=== PATIENT | female | born 1955 | race Caucasian/White ===

== ENCOUNTER 2020-01-24 07:40 | Outpatient (CLI) | payer MEDICARE, SELFPAY ==
--- NOTE | ~2020-01-24 | DEXA_ITS ---
Bone Density Report Name: Lisa Reed Age: 64 Sex: Female Ethnicity: White Date of : 1955 Indication: postmenopausal; Referring Provider: ChavaAlicia Study: Bone densitometry was performed. Exam Date: January 24, 2020 Accession number: [id number] Bone Density: Region BMD T-score Z-score Classification AP Spine (L1-L4) 0.978 -0.6 1.1 Normal Femoral Neck (Right) 0.807 -0.4 1.1 Normal Total Hip (Right) 0.919 -0.2 1.0 Normal World Health Organization criteria for BMD impression classify patients as: Normal (T-score at or above -1.0), Osteopenia (T-score between -1.0 and -2.5), or Osteoporosis (T-score at or below -2.5). 10-year Fracture Risk: FRAX not reported because: All T-scores for Spine Total, Hip Total, Femoral Neck at or above -1.0 Clinical Information Provided by Patient: Has used the following medications: Vitamin D Patient maximum height was 67 Menopause Age: 36 Does not regularly consume dairy products Drinks caffeinated beverages Onset of menses at age 13 Number of children 2 Impression: The patient has normal bone mass. Discussion: BONE DENSITY IS ABOVE THE MINIMUM DESIRABLE LEVEL AT ALL SKELETAL SITES TESTED. This patient?s bone mineral density is above the minimum desirable level (T-score -1.0 or better) at all sites measured. The patient should follow a healthful lifestyle (good nutrition with adequate calcium and vitamin D, and appropriate weight-bearing exercise). Follow-Up: Consider repeating this study in 5 years or sooner if there is some new clinical indication. Reported by: SENG on 01/24/2020 8:22:00 AM. Reviewed, dictated and finalized at location Juan NORIEGA
--- NOTE | ~2020-01-24 | MM_ITS ---
EXAMINATION: MM screening timothy BI w [facility] HISTORY: Screening mammogram TECHNIQUE: Craniocaudal and mediolateral oblique 3-D tomosynthesis images were obtained and synthetic 2-D images were generated. CAD analysis was submitted and interpreted. COMPARISON: No prior mammogram is available for comparison at this institution. BREAST PARENCHYMAL COMPOSITION: There are scattered areas of fibroglandular density. FINDINGS: There is no evidence of suspicious mass, calcification, or architectural distortion to sugg est malignancy in either breast. There has been no suspicious interval change. IMPRESSION: 1. No mammographic evidence of malignancy. 2. Recommend routine screening mammography in one year. BI-RADS Category 1: Negative Reviewed, dictated and finalized at location A. ER HAND
== END 2020-01-24 07:41 | disposition home or self-care (01) ==
PROVIDERS: PCP Internal Medicine; Visit Provider Internal Medicine
DX: Z12.31 Encounter for screening mammogram for malignant neoplasm of breast (principal); Z78.0 Asymptomatic menopausal state
CPT/HCPCS: 77063; 77067; 77080

== ENCOUNTER 2020-05-10 15:00 | Outpatient (RCR) | payer MEDICARE, SELFPAY ==
[2020-02-10 09:27] VITALS: BMI 39.0
[2020-04-11 09:22] VITALS: BMI 39.0
[2020-04-11 09:33] VITALS: BMI 39.0
== END 2020-05-10 23:59 | disposition home or self-care (01) ==
LOC: ANHDMC 15:00
PROVIDERS: PCP Internal Medicine; Visit Provider Internal Medicine
DX: E11.65 Type 2 diabetes mellitus with hyperglycemia (principal); E66.01 Morbid (severe) obesity due to excess calories; Z71.3 Dietary counseling and surveillance; Z71.89 Other specified counseling
CPT/HCPCS: 97802; 97803; G0108

== ENCOUNTER 2020-07-07 13:32 | Outpatient (CLI) | payer MEDICARE, SELFPAY ==
--- NOTE | 2020-07-12 11:25 | SLEEP_ITS ---
Home Sleep Test DATE OF STUDY: 07/07/2020 ORDERING PHYSICIAN: Dr. Alicia Larsen. REASON FOR THIS STUDY: Obstructive sleep apnea syndrome. HISTORY: This patient is a 64-year-old female, 5 feet 7 inches tall, weighing 255 pounds with a body mass index of 39.9. She has complaints of restless sleep, gasping for air at night, and constantly snoring frequently loud enough that others complain about it. She had a sleep study at [facility] and was started on CPAP, but her partner states that she is still very restless. She does have a family history with her son using CPAP. She rarely awakens from sleep feeling short of breath. She occasionally awakens at night with coughing. She frequently has trouble sleeping with a cold. She occasionally wakes up gasping for breath at night. She frequently has breathing problems at night witnessed by others and frequently sweats excessively at night. She occasionally notices her heart pounding or beating irregularly at night. She rarely falls asleep during the day, rarely involuntarily, never while driving. She rarely has loss of muscle tone with strong emotion. She rarely has daytime difficulties due to excessive sleepiness. She rarely feels paralyzed on waking or falling asleep. She occasionally has vivid dreamlike scenes upon awakening or falling asleep. She is never afraid to go to sleep, never has nightmares. She frequently remembers her dreams, occasionally has racing thoughts. She rarely feels sad or depressed. She occasionally has anxiety. She occasionally has muscular tension. She rarely notices parts of her body jerking at night and she frequently kicks at night. She rarely has crawly achy feelings in the legs at night, frequently has leg pain at night. She does not have morning jaw pain. She occasionally grinds her teeth at night. She rarely is bothered by pain during the day and rarely is awakened by pain during the night. She occasionally wakes up feeling stiff in the morning with sore achy muscles and pain in the neck and spine. She has concentration difficulties, bowel disturbances, and palpitations. Normal bedtime is 10 p.m., falling asleep within 45 minutes, waking 2 to 3 times at night for 15 minutes, during that time will use the bathroom or change body positions. She wakes up around 3 in the morning. She denies taking naps. Most of the time, she is not refreshed in the morning. MEDICAL COMORBIDITIES: 1. Hypertension. 2. Diabetes. 3. Neuropathy. 4. Obstructive sleep apnea syndrome, previously on CPAP. 5. Psoriasis. MEDICATIONS: 1. Lisinopril 40 mg a day. 2. Chlorthalidone 20 mg a day. 3. Amlodipine 10 mg a day. 4. Eliquis 5 mg b.i.d. 5. Metoprolol 25 mg twice a day. 6. Metformin ER 250 mg twice a day. HABITS: Smoked tobacco years ago. Caffeine, 1 per day. Alcohol, 3 per month. DESCRIPTION OF THE STUDY: On the Thornton Sleepiness Scale, her score is 8. This was conducted as an unattended type 3 portable home sleep test with 4 channel monitoring including respiratory effort channel, snoring channel, oxygen saturation channel, and heart rate channel. The study was scored using [facility] guidelines. Duration of the study is 8 hours 4 minutes. The apnea-hypopnea index is 22, elevated. The oxygen desaturation index is 21.5. The lowest desaturation is 78%. She had 28 apneas. The majority of these apneas, 68% or 19 apneas were central, 25% of the apneas or 7 were obstructive, 2 apneas were mixed, 7% of the total. She had 151 hypopneas. There were 873 snoring events and 173 desaturations with 54 minutes or 11% of the study spent below 88%. Heart rate ranged from 40 to 87, normal heart rate range. IMPRESSION: 1. This home sleep test shows evidence of at least moderate obs
== END 2020-07-07 13:33 | disposition home or self-care (01) ==
LOC: ANHCSM 13:33
PROVIDERS: PCP Internal Medicine; Visit Provider Internal Medicine
DX: G47.33 Obstructive sleep apnea (adult) (pediatric) (principal)
CPT/HCPCS: 95806

== ENCOUNTER 2020-09-19 09:15 | Outpatient (RCR) | payer MEDICARE, SELFPAY ==
[2020-08-08 14:02] VITALS: BMI 38.7
[2020-08-08 14:03] VITALS: BMI 38.7
== END 2020-09-19 12:09 | disposition home or self-care (01) ==
LOC: ANHDMC 09:15
PROVIDERS: PCP Internal Medicine; Visit Provider Internal Medicine
DX: E11.65 Type 2 diabetes mellitus with hyperglycemia (principal); E66.01 Morbid (severe) obesity due to excess calories; Z71.3 Dietary counseling and surveillance
CPT/HCPCS: 97803

== ENCOUNTER 2021-04-02 09:19 | Outpatient (CLI) | payer MEDICARE, SELFPAY ==
--- NOTE | ~2021-04-02 | MM_ITS ---
EXAMINATION: MM screening timothy BI w val[facility] HISTORY: Screening TECHNIQUE: Craniocaudal and mediolateral oblique 3-D tomosynthesis images were obtained and synthetic 2-D images were generated. CAD analysis was submitted and interpreted. COMPARISON: 01/24/2020 BREAST PARENCHYMAL COMPOSITION: There are scattered areas of fibroglandular density. FINDINGS: There is no evidence of suspicious mass, calcification, or architectural distortion to sugg est malignancy in either breast. There has been no suspicious interval change. IMPRESSION: 1. No mammographic evidence of malignancy. 2. Recommend routine screening mammography in one year. BI-RADS Category 1: Negative Reviewed, dictated and finalized at location A.
== END 2021-04-02 09:20 | disposition home or self-care (01) ==
LOC: ANHIMG 09:23
PROVIDERS: PCP Internal Medicine; Visit Provider Internal Medicine
DX: Z12.31 Encounter for screening mammogram for malignant neoplasm of breast (principal)
CPT/HCPCS: 77063; 77067

== ENCOUNTER 2022-05-10 12:11 | Outpatient (CLI) | payer MEDICARE, SELFPAY ==
--- NOTE | ~2022-05-10 | MMUS_ITS ---
EXAMINATION: MM diagnostic timothy BI w [facility], US breast RT limited HISTORY: Palpable lump in the upper outer quadrant of the right breast TECHNIQUE: Craniocaudal, mediolateral, and mediolateral oblique 3-D tomosynthesis images of the matthew ts were performed and synthetic 2-D images were generated. CAD analysis was submitted and interpreted . High resolution limited right breast ultrasound was performed. COMPARISON: 04/02/2021, 01/24/2020 BREAST PARENCHYMAL COMPOSITION: There are scattered areas of fibroglandular density. FINDINGS: MAMMOGRAPHIC FINDINGS: There is no suspicious mass, calcification, or architectural distortion in either breast to suggest malignancy. There has been no suspicious interval change. No mammographic correlate is identified for the reported palpable abnormality in the upper outer quadrant of the right breast. ULTRASOUND: There is no evidence of focal abnormal solid or cystic mass in the vicinity of the reported palpable abnormality of concern in the right breast. IMPRESSION: 1. No specific mammographic or sonographic correlate is identified for the reported palpable abnormal ity of concern. Further evaluation at this time should be based on clinical assessment. Continued fol low-up physical examination is recommended. 2. Recommend routine screening mammography in one year. BI-RADS Category 1: Negative Reviewed, dictated and finalized at location A. IMPRESSION: 1. No specific mammographic or sonographic correlate is identified for the repo rted palpable abnormality of concern. Further evaluation at this time should be based on clinical assessment. Continued follow-up physical examination is mauri mmended. 2. Recommend routine screening mammography in one year. BI-RADS Category 1: Negative
== END 2022-05-10 12:12 | disposition home or self-care (01) ==
LOC: ANHIMG 12:12
PROVIDERS: PCP Internal Medicine; Visit Provider Internal Medicine
DX: R92.8 Other abnormal and inconclusive findings on diagnostic imaging of breast (principal); N63.10 Unspecified lump in the right breast, unspecified quadrant
CPT/HCPCS: 76642; 77062; 77066; G0279

== ENCOUNTER → 2022-10-10 12:15 | Outpatient (CLI) | payer MEDICARE, SELFPAY ==
--- NOTE | ~2022-10-10 | US_ITS ---
EXAMINATION: US carotid duplex BI DATE: 10/10/2022 12:48 INDICATION: Carotid bruit TECHNIQUE: Grayscale, color Doppler, and pulsed Doppler images of the cervical carotid arteries were obtained. The degree of vessel stenosis is placed in one of the following categories: normal, <50%, 5 0-69%, >=70% but less than near-occlusion, near-occlusion, or total occlusion. Note that percent sten osis relative to normal distal artery lumen diameter is indirectly measured from velocity measurement s as described by Issa, et al. Radiology 2003; 229:340-346. COMPARISON: None. FINDINGS: RIGHT: The right common carotid artery (CCA) peak systolic velocity (PSV) is 88 cm/s. The right internal car otid artery (ICA) PSV is 91 cm/s. The right ICA end-diastolic velocity (EDV) is 23 cm/s. The right IC A/CCA PSV ratio is 1.0. Grayscale and color Doppler images yield an estimate of <50% diameter reducti on from plaque in the ICA. The external carotid artery (ECA) PSV is 108 cm/s. There is antegrade flow in the right vertebral artery. LEFT: The left CCA PSV is 74 cm/s. The left ICA PSV is 630 cm/s. The left ICA EDV is 208 cm/s. The left ICA /CCA PSV ratio is 8.1. Grayscale and color Doppler images yield an estimate of >=70% (but less than n ear occlusion) diameter reduction from plaque in the ICA. The ECA PSV is 134 cm/s. There is antegrade flow in the left vertebral artery. IMPRESSION: 1. <50% stenosis in the right internal carotid artery. 2. >=70% (but less than near occlusion) stenosis in the left internal carotid artery. Reviewed, dictated and finalized at location A. OR GRAIN FARMWORKER IMPRESSION: 1. <50% stenosis in the right internal carotid artery. 2. >=70% (but less than near occlusion) stenosis in the left internal carotid a juan f.
== END ==
PROVIDERS: PCP Internal Medicine; Visit Provider Internal Medicine
DX: R09.89 Other specified symptoms and signs involving the circulatory and respiratory systems (principal); I65.23 Occlusion and stenosis of bilateral carotid arteries
CPT/HCPCS: 93880

== ENCOUNTER 2023-02-07 04:47 | Emergency (ER) | payer MEDICARE, SELFPAY ==
--- NOTE | ~2023-02-07 | CT_ITS ---
CT ANGIOGRAM NECK AND HEAD History: Swelling at carotid endarterectomy site. Technique: Axial noncontrast imaging of the brain was performed. Serial spiral axial images through t he head and neck were vein obtained during arterial phase IV injection of 100 cc of Omnipaque 350. 3- D postprocessing and MIP images were then reconstructed on the remote workstation. Dose reduction luh hnique was used on this scan by utilizing automated exposure control and iterative reconstruction luh hnique. The dose-length product (DLP) was 1937.05 mGy-cm. CTA neck findings: Bilateral vertebral arteries are patent. Common carotid, internal carotid, and ex ternal carotid arteries are patent. No stenosis, large vessel occlusion, or aneurysm. The proximal ri ght internal carotid artery demonstrates 0% stenosis relative to the normal distal artery lumen diame ter. The proximal left internal carotid artery demonstrates 0% stenosis relative to the normal distal artery lumen diameter. CTA head findings: Distal vertebral arteries, basilar artery, and posterior cerebral arteries are pat ent. Distal internal carotid arteries, middle cerebral arteries, and anterior cerebral arteries are p atent. No large vessel occlusion, stenosis, or aneurysm. No significant abnormality seen on noncontrast brain images. There is mild soft tissue edema with small amount of soft tissue gas in the left side of the neck, pr esumably related to recent carotid endarterectomy intervention in this region. No abscess or hematoma evident. Impression: No significant vascular abnormality identified. Soft tissue edema and small amount of soft tissue gas in the left neck, consistent with post endarter ectomy change. No abscess or hematoma evident. Correlate clinically for cellulitis. Reviewed, dictated and finalized at location . RN PRODUCT MARKETING MANAGER Impression: No significant vascular abnormality identified. Soft tissue edema and small amount of soft tissue gas in the left neck, consist ent with post endarterectomy change. No abscess or hematoma evident. Correlate clinically for cellulitis.
[2023-02-07 04:51] VITALS: BP 182/92; PULSE 64; RESP 20; TEMP 36.8; O2SAT 96
--- NOTE | 2023-02-07 05:10 | PC.NURSE ---
Pt states she had surgery on her left carotid artery on Friday and was discharged yesterday. She woke up this morning around 0330 and noticed swelling and a bump under the incision. She c/o pain when area is touched but is otherwise pain free. She denies SOB or difficulty swallowing. Her chest is more red than usual but not hot to touch. She denies any other complaints.
[2023-02-07] MEDS: ACETAMINOPHEN 500 MG TABLET 1000 MG PO (05:29)
[2023-02-07 05:37] LABS: Basophils Absolute Auto 0.1 K/mm3 (0.0-0.1); Basophils Percent Auto 0.8 % (0.2-1.2); Eosinophils Absolute Auto 0.4 K/mm3 (0-0.3); Eosinophils Percent Auto 4.8 % (0-4.4); Hematocrit 40.6 % (37.0-47.0); Hemoglobin 13.1 g/dL (12.0-15.0); Immature Granulocyte Absolute 0.03 K/mm3 (0.00-0.031); Immature Granulocyte Percent A 0.4 % (0-0.5); Lymphocytes Absolute Auto 2.09 K/mm3 (0.9-3.2); Lymphocytes Percent Auto 24.6 % (18.3-44.2); Mean Corpuscular HGB Conc 32.3 g/dl (32-36); Mean Corpuscular Hemoglobin 27.9 pg (26-34); Mean Corpuscular Volume 86.6 fl (80-100); Mean Platelet Volume 10.1 fl (7.4-10.4); Monocytes Absolute Auto 0.7 K/mm3 (0.1-0.6); Monocytes Percent Auto 8.7 % (2.6-8.5); Neutrophils Absolute Auto 5.1 K/mm3 (1.3-6.7); Neutrophils Percent Auto 60.7 % (45.5-73.1); Platelet Count Result 249 k/mm3 (150-375); Red Blood Count 4.69 M/mm3 (4.2-5.4); Red Cell Distribution Width 14.5 % (11.5-14.5); White Blood Count 8.5 K/mm3 (4.5-10.0)
[2023-02-07 05:45] VITALS: BP 149/57; PULSE 52; RESP 12; O2SAT 95
[2023-02-07 05:48] LABS: Anion Gap 7 mmol/L (8-16); Blood Urea Nitrogen 18 mg/dL (7-17); Carbon Dioxide 34 mmol/L (22-30); Chloride 97 mmol/L (98-107); Estimated CRCL calculation 74 ml/min; Estimated Glomerular Filt Rate > 60; Glucose 127 mg/dL (65-110); Potassium 3.2 mmol/L (3.4-5.0); Sodium 138 mmol/L (137-145)
--- NOTE | 2023-02-07 05:54 | ED.GENADULT ---
HPI - General Adult General Chief complaint: Unspecified <Amor Webster MD - Last Filed: 02/13/23 19:02> Stated complaint: post op swelling <Amor Webster MD - Last Filed: 02/13/23 19:02> Time Seen by Provider: 02/07/23 05:01 <Amor Webster MD - Last Filed: 02/13/23 19:02> History of Present Illness HPI narrative: is a 67-year-old female presenting ED on postoperative day 2 from a carotid endarterectomy performed at [facility] by Dr. Houston. patient was feeling well yesterday and then woke up this morning and noticed that she had increased swelling at this site with a lacy erythema around her neck and upper chest. The area is tender to touch but she is not in any pain at baseline. She denies fever chills nausea vomiting diarrhea. She does not feel like she has any swelling of her airway. She is tolerating her own secretions. <Amor Webster MD - Last Filed: 02/13/23 19:02> is a 67-year-old female presenting ED on postoperative day 2 from a carotid endarterectomy performed at [facility] by Dr. Houston. patient was feeling well yesterday and then woke up this morning and noticed that she had increased swelling at this site with a lacy erythema around her neck and upper chest. The area is tender to touch but she is not in any pain at baseline. She denies fever chills nausea vomiting diarrhea. She does not feel like she has any swelling of her airway. She is tolerating her own secretions. <Roddy Covington MD - Last Filed: 02/07/23 17:47> Related Data Allergies/adverse reactions: Allergies Allergy/AdvReac Type Severity Reaction Status Date / Time hydrocodone [From Vicodin] AdvReac Nausea and Verified 02/07/23 04:54 Vomiting <Amor Webster MD - Last Filed: 02/13/23 19:02> [facility] Past Medical History Medical History: Medical History (Updated 02/08/23 @ 00:00 by Mike Rowe) Afib Diabetes Hyperlipidemia Hypertension <Amor Webster MD - Last Filed: 02/13/23 19:02> Surgical History Surgical History: Surgical History (Updated 02/07/23 @ 05:56 by Amor Webster MD) History of carotid endarterectomy History of cholecystectomy History of hip replacement <Amor Webster MD - Last Filed: 02/13/23 19:02> Social History Social History: Social History (Updated 02/07/23 @ 05:56 by Amor Webster MD) Social History: patient denies alcohol use, uses a vape pen, denies drug use Spiritual care concerns: No <Amor Webster MD - Last Filed: 02/13/23 19:02> Exam Narrative: APPEARANCE: No apparent distress. Head: atraumatic. EYES: EOMI, NOSE: Atraumatic NECK: patient has a carotid endarterectomy incision that is covered with Steri-Strips. There is some swelling and tenderness on the superior portion of the incision. There is a lacy erythema over her neck and upper chest. It is not warm to touch. RESPIRATORY: No increased rate of breathing CARDIOVASCULAR: RRR, ABDOMINAL: Non-distended MUSCULOSKELETAl: No obvious deformities NEURO: Alert. Cranial nerves 2-12 grossly intact. Sensation light touch, motor function cerebellar function intact for 4 extremities. Gait exam was normal. SKIN:: Warm, dry. Normal color PSYCHIATRIC: Normal affect <Amor Webster MD - Last Filed: 02/13/23 19:02> Course Reevaluation(s) Reevaluation #1: Patient care was signed out to me by Dr. Webster with CTA pending. CTA showed no evidence of hematoma or abscess. Case was rediscussed with Dr. Houston. With no significant abscess or hematoma identified her surgeon was comfortable with the patient having follow-up on Friday at the clinic. CTA was concerning for possible cellulitis. Patient does have some erythema over the skin that she believes is secondary to removal of the large bandage that had recently been in place. Skin does not appear to be cellulitic. Patient was advised to continue to hold her anticoagulation until s
[2023-02-07 06:49] VITALS: BP 141/52; PULSE 60; RESP 12; O2SAT 95
[2023-02-07 08:22] VITALS: BP 154/56; PULSE 59; RESP 17; TEMP 36.6; O2SAT 98
== END 2023-02-07 08:24 | disposition home or self-care (01) ==
PROVIDERS: Emergency Provider Emergency Medicine; PCP Internal Medicine
DX: R22.1 Localized swelling, mass and lump, neck (principal); L76.82 Other postprocedural complications of skin and subcutaneous tissue; I48.91 Unspecified atrial fibrillation; E11.9 Type 2 diabetes mellitus without complications; E78.5 Hyperlipidemia, unspecified; I10 Essential (primary) hypertension
CPT/HCPCS: 36415; 70496; 70498; 80048; 85025; 99284; A9270; Q9967

== ENCOUNTER 2023-08-13 00:20 | Day surgery (SDC) | payer MEDICARE, SELFPAY ==
[2023-08-07 16:01] VITALS: BMI 36.9
[2023-08-13 08:36] VITALS: BP 157/70; PULSE 89; RESP 20; TEMP 36.3; O2SAT 98; BMI 35.2
[2023-08-13] MEDS: LACTATED RINGERS 1,000 ML 150 ML IV CONT (08:47)
[2023-08-13 08:49] LABS: Glucose Point of Care 171 mg/dl (65-105)
--- NOTE | 2023-08-13 09:05 | WPDANESEPPF ---
Anes - Initial Pre Proc Eval Procedure: Operation Date: 08/13/23 10:00 Proposed Procedures p Colonoscopy - Brown Watkins MD Date/Time: 08/13/23 09:05 Surgeon: Brown Watkins MD Pre Op Diagnosis: Hx of colon polyps Patient Data Age: 67 Gender: F Height: 1.7 m Weight: 102 kg Last Vital Signs Temp 36.3 C L 08/13/23 08:36 Pulse 89 08/13/23 08:36 Resp 20 08/13/23 08:36 BP 157/70 H 08/13/23 08:36 Pulse Ox 98 08/13/23 08:36 O2 Del Method Room Air 08/13/23 08:36 Allergies Allergy/AdvReac Type Severity Reaction Status Date / Time hydrocodone [From Vicodin] AdvReac Severe Nausea and Verified 08/13/23 08:33 Vomiting Home Medications Medication Instructions Recorded Confirmed Type amlodipine 10 mg tablet 10 mg PO DAILY 08/07/23 08/07/23 History apixaban 5 mg tablet (Eliquis) 5 mg PO BID 08/07/23 08/07/23 History ascorbic acid (vitamin C) 1,000 mg 1 g PO DAILY 08/07/23 08/07/23 History tablet aspirin 81 mg tablet 81 mg PO DAILY 08/07/23 08/07/23 History chlorthalidone 25 mg tablet 25 mg PO DAILY 08/07/23 08/07/23 History cholecalciferol (vitamin D3) 25 25 mcg PO DAILY 08/07/23 08/07/23 History mcg (1,000 unit) tablet (Vitamin D3) lisinopril 40 mg tablet 40 mg PO DAILY 08/07/23 08/07/23 History metformin 750 mg tablet,extended 750 mg PO DAILY 08/07/23 08/07/23 History release 24 hr metoprolol tartrate 25 mg tablet 25 mg PO BID 08/07/23 08/07/23 History suxkbycc-xid-iidl-FA-Ca carb-vit K 1 tablet PO DAILY 08/07/23 08/07/23 History 18 mg iron-400 mcg-500 mg tablet rosuvastatin 40 mg tablet 40 mg PO HS 08/07/23 08/07/23 History Laboratory Tests 08/13/23 08:45 POC Capillary Glucose 171 H mg/dl (65-105) Patient hx anesthesia problems: none Family hx anesthesia problems: other (mother low bp hr) Results Review: All pre-operative results and documents have been reviewed as part of the pre-operative evaluation. [facility] Past Medical History Medical History Afib Diabetes Hyperlipidemia Hypertension Surgical History Surgical History History of carotid endarterectomy History of cholecystectomy History of hip replacement Social History Social History Social History: patient denies alcohol use, uses a vape pen, denies drug use Smoking packs per day: 0.75 Smoking cigarettes per day: 15.0 Years smoked: 45 Smoking pack-years: 33.75 Smoking status: Former smoker Tobacco type: cigarettes and e-cigarettes/vaping Additional smoking assessment comments: OCC. VAPES NOW Alcohol intake: current Substance use: never Substance use type: does not use Living arrangements: with family Spiritual care concerns: No Anes - Eval Final PreProcedure Day of Procedure 08/13/23 09:05 Patient weight: obese Heart: regular rate and rhythm Lungs: clear to auscultation Airway: Mallampati scale class II Neurological: alert and oriented Last oral intake: >/= 8 hours ASA classification: III Emergent: no Anesthetic plan: proceed Anesthesia type and monitoring: general GIVS and standard monitoring Results Review: All pre-operative results and documents have been reviewed as part of the pre-operative evaluation. Informed Consent: The patient's anesthetic plan and its attendant risks and benefits were discussed with the patient/family/POA. Questions were solicited and answers provided to the satisfaction of the patient/family/POA.
--- NOTE | 2023-08-13 09:12 | PM.HPGS ---
History of Present Illness History of Present Illness Consent: Risks, benefits, and alternatives have been discussed and questions answered. Patient agrees to proceed with procedure. Chief complaint: Hx of colon polyps Narrative: Lisa Reed is a 67 year old female with colon polyp 5 years ago Review of Systems Constitutional: Constitutional: Denies headache(s) and Denies weakness Eyes: Eyes: Denies blurry vision ENT: Reports Normal hearing present, Denies headache(s) and Denies neck pain Cardiovascular: Cardiovascular: Denies chest pain and Denies dyspnea Respiratory: Respiratory: Denies dyspnea Gastrointestinal: Gastrointestinal: Reports no additional gastrointestinal complaints Genitourinary: Genitourinary: Denies dysuria Musculoskeletal: Musculoskeletal: Denies neck pain Integumentary/Breasts: Skin/Breast: Denies dry skin Neurologic: Reports Normal hearing present, Denies headache(s) and Denies weakness Psychiatric: Psychiatric: Denies anxiety Endocrine: Endocrine: Denies change in body appearance Hematologic/Lymphatic: Hematologic/Lymphatic: Denies easy bleeding Allergic/Immunologic: Allergic/Immunologic: Denies urticaria PMFSH Past Medical History Medical History (Updated 08/13/23 @ 09:12 by Brown Watkins MD) Afib Colon polyp Diabetes Hyperlipidemia Hypertension Surgical History Surgical History History of carotid endarterectomy History of cholecystectomy History of hip replacement Social History Social History Social History: patient denies alcohol use, uses a vape pen, denies drug use Smoking packs per day: 0.75 Smoking cigarettes per day: 15.0 Years smoked: 45 Smoking pack-years: 33.75 Smoking status: Former smoker Tobacco type: cigarettes and e-cigarettes/vaping Additional smoking assessment comments: OCC. VAPES NOW Alcohol intake: current Substance use: never Substance use type: does not use Living arrangements: with family Spiritual care concerns: No Meds Home Medications and Allergies Home Medications Medication Instructions Recorded Confirmed Type amlodipine 10 mg tablet 10 mg PO DAILY 08/07/23 08/07/23 History apixaban 5 mg tablet (Eliquis) 5 mg PO BID 08/07/23 08/07/23 History ascorbic acid (vitamin C) 1,000 mg 1 g PO DAILY 08/07/23 08/07/23 History tablet aspirin 81 mg tablet 81 mg PO DAILY 08/07/23 08/07/23 History chlorthalidone 25 mg tablet 25 mg PO DAILY 08/07/23 08/07/23 History cholecalciferol (vitamin D3) 25 25 mcg PO DAILY 08/07/23 08/07/23 History mcg (1,000 unit) tablet (Vitamin D3) lisinopril 40 mg tablet 40 mg PO DAILY 08/07/23 08/07/23 History metformin 750 mg tablet,extended 750 mg PO DAILY 08/07/23 08/07/23 History release 24 hr metoprolol tartrate 25 mg tablet 25 mg PO BID 08/07/23 08/07/23 History pbxkrqiv-rxj-kfet-FA-Ca carb-vit K 1 tablet PO DAILY 08/07/23 08/07/23 History 18 mg iron-400 mcg-500 mg tablet rosuvastatin 40 mg tablet 40 mg PO HS 08/07/23 08/07/23 History Allergies Allergy/AdvReac Type Severity Reaction Status Date / Time hydrocodone [From Vicodin] AdvReac Severe Nausea and Verified 08/13/23 08:33 Vomiting Vital Signs Vital Signs - 24 hr 08/13/23 08:36 Temperature 97.4 F L Pulse Rate 89 Respiratory Rate 20 Blood Pressure 157/70 H Pulse Oximetry 98 Oxygen Delivery Room Air Exam Const: General: comfortable and no acute distress HENMT: Face/Nose/Sinus: Normal nares present Eyes: General: appearance normal, both eyes and all related structures Neck: Neck: no JVD Resp: Auscultation: clear to auscultation bilaterally Cardio: Rate: regular rate Rhythm: regular rhythm GI: Inspection: non-distended GI Palp: Yes Soft to palpation Skin: General skin exam: normal color Neuro: General: gait normal Speech: normal speech E
[2023-08-13 09:35] VITALS: BP 118/57; PULSE 66; RESP 20; O2SAT 98
[2023-08-13 09:45] VITALS: BP 120/60; PULSE 68; RESP 18; O2SAT 100
[2023-08-13 09:55] VITALS: BP 129/60; PULSE 64; RESP 18; O2SAT 100
== END 2023-08-13 10:01 | disposition home or self-care (01) ==
PROVIDERS: PCP Internal Medicine; Visit Provider Internal Medicine Gastroenterology
PROC: 0DJD8ZZ Inspection of Lower Intestinal Tract, Via Natural or Artificial Opening Endoscopic (ICD-10-PCS; CPT 45378; principal; 2023-08-13 10:00)
DX: Z12.11 Encounter for screening for malignant neoplasm of colon (principal); D12.3 Benign neoplasm of transverse colon; K57.30 Diverticulosis of large intestine without perforation or abscess without bleeding; I48.91 Unspecified atrial fibrillation; I10 Essential (primary) hypertension; E11.9 Type 2 diabetes mellitus without complications; E78.5 Hyperlipidemia, unspecified; F17.290 Nicotine dependence, other tobacco product, uncomplicated; E66.9 Obesity, unspecified; Z68.35 Body mass index [BMI] 35.0-35.9, adult; Z79.01 Long term (current) use of anticoagulants; Z79.82 Long term (current) use of aspirin; Z79.84 Long term (current) use of oral hypoglycemic drugs
CPT/HCPCS: 45385; 82948; 88305; J2704; J7120

== ENCOUNTER 2024-06-04 09:00 | Outpatient (CLI) | payer MEDICARE, SELFPAY ==
--- NOTE | ~2024-06-04 | MM_ITS ---
EXAMINATION: MM screening [facility] BI w [place] HISTORY: Screening mammogram TECHNIQUE: Craniocaudal and mediolateral oblique 3-D tomosynthesis images were obtained and synthetic 2-D images were generated. CAD analysis was submitted and interpreted. COMPARISON: 05/10/2022, 04/02/2021, 01/24/2020 BREAST PARENCHYMAL COMPOSITION:Not Dense. There are scattered areas of fibroglandular density. FINDINGS: No suspicious mass, calcification, or architectural distortion are identified in either ni ast to suggest malignancy. There has been no suspicious interval change. IMPRESSION: No mammographic evidence of malignancy. Recommend routine screening mammography in one year. BI-RADS Category 1: Negative Reviewed, dictated and finalized at location .
== END 2024-06-04 09:01 | disposition home or self-care (01) ==
LOC: ANHIMG 09:01
PROVIDERS: PCP Internal Medicine; Visit Provider Internal Medicine
DX: Z12.31 Encounter for screening mammogram for malignant neoplasm of breast (principal)
CPT/HCPCS: 77063; 77067

== ENCOUNTER 2024-11-11 08:56 | Outpatient (CLI) | payer MEDICARE, SELFPAY ==
--- NOTE | ~2024-11-11 | US_ITS ---
EXAMINATION: US art doppler w press LE BI DATE: 11/11/2024 10:40 INDICATION: Claudication TECHNIQUE: Segmental pressures and plethysmographic and Doppler waveforms of the brachial and lower e xtremity arteries were obtained. COMPARISON: None. FINDINGS: Right and left brachial artery pressures of 112 mm Hg and 131 mm Hg, respectively, are concordant (no rmal difference <= 30 mmHg). The right and left high-thigh pressure indices are unable to be obtained due to inability to occlude the vessels on either the left or right (normal > 1.2). The right ankle-brachial index (FELISA) is 1.07 (normal >= 0.9-1). The right great toe-brachial index (T BI) is 0.39 (normal >= 0.6-0.8). The right lower extremity segmental pressure gradients are increased between the right dorsalis pedis artery and the right poguo-vmu-wdst popliteal artery and right post erior tibial artery (normal gradients <= 20-30 mmHg between adjacent levels on the same leg or the sa me levels on the two legs). Arterial waveforms are biphasic at the right common femoral and superfici al femoral arteries and biphasic at the right popliteal, posterior tibial and dorsalis pedis arteries with brisk systolic upstrokes throughout. The left FELISA is 0.94. The left TBI is 0.46. The left lower extremity segmental pressure gradients are increased between the left above and axdyn-cpx-hlxp popliteal arteries. Arterial waveforms are bipha sic at the left common femoral and superficial femoral arteries and biphasic at the left popliteal, p osterior tibial and dorsalis pedis arteries with brisk systolic upstrokes throughout. IMPRESSION: 1. Arterial occlusive disease to bilateral lower limbs with mildly decreased left TBI and mild to mod erately decreased right TBI. Reviewed, dictated and finalized at location A. ING PIN ADJUSTER IMPRESSION: 1. Arterial occlusive disease to bilateral lower limbs with mildly decreased le ft TBI and mild to moderately decreased right TBI.
== END 2024-11-11 08:57 | disposition home or self-care (01) ==
LOC: ANHIMG 08:57
PROVIDERS: PCP Internal Medicine; Visit Provider Internal Medicine
DX: I77.1 Stricture of artery (principal); I87.8 Other specified disorders of veins
CPT/HCPCS: 93923

== ENCOUNTER 2025-05-19 11:27 | Outpatient (CLI) | payer MEDICARE, SELFPAY ==
--- OUTSIDE RECORDS SUMMARY | 2025-05-16 17:03 | XMS_ITS | Encounter Summary ---
Author Organization [facility] Address [address] [place] [address] Phone Care Team Providers Care Exchange Trouble Shooter Name Role Phone Cherise Joseph DO Primary Care Provider [phone] Alicia Larsen MD Unavailable [phone] Encounter Details Date Type Department Care Team (Late st Contact Info) Description 05/16/2025 Documentation [facility] Surgery [address] [facility] Medical Office Building [address] [address] Nanette Mon RMA Social History Tobacco Use Types Packs/Day Years Used Date Smoking Tobacco: Former Cigarettes 1 51 1 970 - 2020 Passive Smoke Exposure: Past Smokeless Tobacco: Never Alcohol Use Standard Drinks/Week Comments Yes 0 (1 standard drink = 0.6 oz pur e alcohol) AUDIT-C Answer Date Recorded Q1: How often do you have a drink containing alcohol? Never 01/27/2023 Q2: How many drinks containi ng alcohol do you have on a typical day when you are drinking? Patient does not drink Q3: How often do you have si x or more drinks on one occasion? 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
--- OUTSIDE RECORDS SUMMARY | 2025-05-16 17:03 | XMS_ITS | Clinical Summary ---
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 Gender Identity Not on file Sexual Orientation Not on file Last Filed Vital Signs Vital Sign Reading Time Taken Comments Blood Pressure 158/78 05/03/2016 10:44 AM CDT Pulse 77 05/03/2016 10:44 AM CDT Temperature - - Respiratory Rate - - Oxygen Saturation - - Inhaled Oxygen Concentration - - Weight 111.1 kg (245 lb) 05/03/2016 10:44 AM CDT Height 170.2 cm (5' 7) 05/03/2016 10:44 AM CDT Body Mass Index 38.37 05/03/2016 10:44 AM CDT Plan of Treatment Health Maintenance Due Date Last Done Comments Colorectal Cancer Screening Colonoscopy (10 Years) 1955 Hepatitis C 1972 DTaP, Tdap and Td Vaccines ( 1 - Tdap) 1973 Mammogram Screening 1994 Pneumococcal Vaccine: 50+ Ye ars (1 of 1 - PCV) 2004 Zoster Vaccines (1 of 2) 2004 Dexa Scan (General) 2019 COVID-19 Vaccine ( - 2023-2 5 season) 2024 RSV Immunization or 60+ Years (1 - 1-dose 75+ series) 2029 Meningococcal B Vaccine Aged Out No l onger eligible based on patient's age to complete this topic Meningococcal Vaccine Aged Out No cornel lisa eligible based on patient's age to complete this topic RSV Immunizations Under 20 Months Aged Out No longer eligible based on patient's age to complete this topic Insurance [address] [address] Care Teams Wool Hat Forming Machine Tender Relationship Specialty Start Date End Date Lenard Fan MD [address] [place] [id number] PCP - General FAMILY PRACTICE 08/25/19
--- OUTSIDE RECORDS SUMMARY | 2025-05-16 17:03 | XMS_ITS | Encounter Summary ---
Author Organization [facility] Address [address] [place] [address] Phone Care Team Providers Care Office Helper Name Role Phone Cherise Joseph Primary Care Provider [phone] Alicia Larsen MD Unavailable [phone] Reason for Visit * Consultation (Routine) - Authorized Specialty Diagnoses / Procedures Referred By Contnikia t Referred To Contact Vascular Surgery Diagnoses Left carotid stenosis Dhruv Shahid MD [address] [facility] [address] [place] [address] Phone: tel: [place]: [place] [address] [place] [address] Phone: tel: fax: Referral ID Status Reason Start Date Expiration Date Visits Requested Visits Authorized [id number] Authorized Specialty Services Required 04/28/2025 05/28/2026 12 12 Encounter Details Date Type Department Care Team (Late st Contact Info) Description 05/16/2025 3:15 PM CDT Office Visit [facility] Surgery [address] 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 Gender Identity Not on file Sexual Orientation Not on file documented as of this encounter Last Filed Vital Signs Vital Sign Reading Time Taken Comments Blood Pressure 131/70 05/16/2025 2:38 PM CDT Pulse 57 05/16/2025 2:38 PM CDT Temperature 36.7 C (98 F) 05/16/2025 2:38 PM CDT Respiratory Rate 18 05/16/2025 2:38 PM CDT Oxygen Saturation 98% 05/16/2025 2:38 PM CDT Inhaled Oxygen Concentration - - Weight 116.1 kg (256 lb) 05/16/2025 2:38 PM CDT Height 170.2 cm (5' 7.01) 05/16/2025 2:38 PM CD T Body Mass Index 40.09 05/16/2025 2:38 PM CDT documented in this encounter Patient Instructions * Patient Instructions* James Brooke MD - 05/16/2025 3:15 PM CDT Carotid duplex documented in this encounter Progress Notes * James Brooke MD - 05/16/2025 3:15 PM CDT Patient: Lisa Reed Date of : 1955 Date of Service: 05/16/2025 Return Office Visit Consultation at the request of Alicia Larsen MD for an opinion regarding carotid artery disease. I have personally taken a history, examined the patient and determined the assessment and plan as outlined below. CHIEF COMPLAINT: Carotid stenosis HISTORY OF PRESENT ILLNESS: Patient is a 69 y.o. female and has a history of hypertension, paroxysmal atrial fibrillation, type 2 diabetes mellitus, obesity, DJD with high grade asymptomatic Left carotid stenosis s/p L CEA 02/05/23. She denies any TIA, stroke or amaurosis fugax symptoms. She is on antiplatelet therapy and statins. Carotid duplex in summer 2022 showed less than 50% stenosis bilaterally. Repeat carotid duplex January 2024 shows less than 50% stenosis on right and greater than 70% stenosis on the left. She remains asymptomatic carotid stenosis and is currently on aspirin, Eliquis and statins. Carotidduplex shows less than 50% stenosis on right and over 70% stenosis on left. CT angiogram head and neck 11/23 shows normal right carotid artery and about 60% left ICA stenosis at best. It is very tortuous proximally with a hairpin bend within the internal carotid artery that is likely leading to increased velocities noted on carotid duplex. Repeat ultrasound duplex today shows right side is normal and left side velocities are improved compared to last visit. Peak systolic velocity is 305 and end-diastolic velocity is 63 cm/sec. Ratio is4.3. She remains asymptomatic and denies any symptoms of stroke, TIA or amaurosis fugax. Past Medical History: Diagnosis Date Atrial fibrillation (HCC) Diabetes mellitus (HCC) Hyperlipidemia Hypertension Sleep apnea Past Surgical History: Procedure Laterality Date CHOLECYSTECTOMY ECTOPIC TOTAL HIP ARTHROPLASTY Left UTERINE FIBROID SURGERY Family History Problem Relation Age of Onset Hypertension Mother Cancer Mother Heart failure Father Hypertension Sister No Known Problems Brother Cancer Brother Hypertension Brother Cancer Brother Other (heart valve replacement) Brother Heart attack Brother Aneurysm Brother Cancer Brother Social History Tobacco Use Smoking status: Former Current packs/day: 0.00 Average packs/day: 1 pack/day for 51.0 years (51.0 ttl pk-yrs) Types: Cigarettes Start date: 1969 Quit date: 2020 Years since quittin.4 Passive exposure: Past Smokeless tobacco: Never Substance and Sexual Activity Drug use: Yes Types: Alcohol Comment: rare Sexual activity: Defer Alcohol Use: Not At Risk (01/27/2023) AUDIT-C Frequency of Alcohol Consumption: Never Average Number of Drinks: Patient does not drink Frequency of Binge Drinking: Never Allergies as of 05/16/2025 - Reviewed 05/16/2025 Allergen Reaction Noted Hydrocodone Nausea & Vomiting 11/28/2022 Hydrocodone-acetaminophen Nausea & Vomiting and Unknown 02/16/2020 Current Outpatient Medications: acetaminophen (TYLENOL) 500 mg tablet, Take 2 tablets (1,000 mg total) by mouth every 6 (six) hoursas needed for pain, Disp: , Rfl: amLODIPine (NORVASC) 10 mg tablet, Take 1 tablet (10 mg total) by mouth every morning, Disp: , Rfl: ascorbic acid (VITAMIN C) 1,000 mg tablet, Take 1 tablet (1,000 mg total) by mouth nightly, Disp: ,Rfl: aspirin 81 mg enteric coated tablet, Take 1 tablet (81 mg total) by mouth daily, Disp: 30 tablet, Rfl: 11 calcipotriene (DOVONOX) 0.005 % cream, Apply 1 application topically 2 (two) times a day, Disp: , Rfl: carvediloL (COREG) 6.25 mg tablet, Take 1 tablet (6.25 mg total) by mouth 2 (two) times a day with meals, Disp: 60 tablet, Rfl: 11 cholecalciferol (VITAMIN D-3) 25 mcg (1,000 unit) tablet, Take 1 tablet (1,000 Units total) by mouth every morning, Disp: , Rfl: Eliquis 5 mg tablet, Take 1 tablet (5 mg total) by mouth 2 (two) times a day Please resume your home dose Eliquis on Friday02/10/2023., Disp: 30 tablet, Rfl: 3 lisinopriL (PRINIVIL,ZESTRIL) 40 mg tablet, Take 1 tablet (40 mg total) by mouth every morning, Disp: , Rfl: metFORMIN XR (GLUCOPHAGE XR) 750 mg 24 hr tablet, Take 1 tablet (750 mg total) by mouth 2 (two) times a day, Disp: , Rfl: multivitamin capsule, Take 1 capsule by mouth every morning, Disp: , Rfl: rosuvastatin (CRESTOR) 40 mg tablet, Take 1 tablet (40 mg total) by mouth nightly, Disp: 90 tablet,Rfl: 6 spironolactone (ALDACTONE) 25 mg tablet, Take 1 tablet (25 mg total) by mouth daily, Disp: 30 tablet, Rfl: 11 varenicline tartrate (CHANTIX) 1 mg tablet, Take 0.5 tablets (0.5 mg total) by mouth 2 (two) times a day for 7 days, THEN 1 tablet (1 mg total) 2 (two) times a day for 9 days. Take with full glass ofwater., Disp: 60 tablet, Rfl: 3 REVIEW OF SYSTEMS: The patient???s vascular health history form was reviewed and signed by me dated 05/16/2025 The form was scanned into Media. PHYSICAL EXAMINATION: VITAL SIGNS: Vitals BP 131/70 Pulse 57 Temp 36.7 ??C (98 ??F) Resp 18 Ht 170.2 cm (5' 7.01) Wt 116.1 kg (256 lb) SpO2 98% BMI 40.09 kg/m?? HENT: Normocephalic and atraumatic. Extraocular movements are intact. Moist mucus membranes. EYES: Pupils are equal and reactive to light bilaterally. NECK: Supple with no lymphadenopathy CHEST: Symmetric chest expansion with no accessory muscle usage HEART: Regular rate and rhythm. ABDOMEN: Soft, nontender, nondistended. VASCULAR: Palpable radial pulse, left neck incision is well healed from carotid endarterectomy. Cranial nerve exam is intact MUSCULOSKELETAL: Warm, well perfused NEURO: Grossly intact motor and sensory exam. SKIN: No visible rashes. No wounds noted. RADIOLOGY: I personally reviewed the report and images of: CTA HEAD/NECK Patient Active Problem List Diagnosis Morbid (severe) obesity due to excess calories (HCC) Other thrombophilia Stenosis of left carotid artery Atrial fibrillation (HCC) HTN (hypertension) Diabetes mellitus (HCC) Carotid artery calcification, left ASSESSMENT/PLAN: Lisa Reed is a 69 y.o. female patient with asymptomatic high-grade left carotid artery stenosis and mild right carotid stenosis s/p L CEA 02/05/23 - no TIA, stroke or amaurosis fugax - carotid duplex May 2023 showed less than 50% stenosis bilaterally. Repeat carotid duplex January 2024 shows findings concerning for high-grade left internal carotid artery stenosis - CT angiogram head and neck Carloz,24 shows normal right carotid artery and 60% left ICA stenosis which is very tortuous with a hairpin bend in the proximal left ICA. This area of tortuosity is likely resulting in significantly elevated velocities noted on ultrasound duplex - CN exam normal - on aspirin, Eliquis and statins - discussed signs and symptoms of TIA, stroke or amaurosis fugax for which she will go to the nearest ER right away - bedside ultrasound duplex of left carotid artery shows about 3.5 cm to the carotid bifurcation onthe left side from the base of the neck. - Repeat carotid duplex at this visit shows that the right side is normal and left side has moderate to severe stenosis with interval improvement in velocities. Peak systolic velocity of 305 cm/sec with 63 cm/sec end-diastolic velocity and ratio of 4.3 - discussed options in detail and will continue conservative management at this time. Follow-up in 6 months with carotid duplex. The area of proximal left ICA tortuosity is likely contributing to significantly increased velocities. If it is substantially increases, we may have to intervene. If the stenosis continues to get worse in the left ICA segment, we will consider TCAR but currently it justrequires conservative management alone with serial monitoring James Brooke MD documented in this encounter Plan of Treatment Not on file documented as of this encounter Visit Diagnoses Diagnosis Left carotid stenosis documented in this encounter Orders Outpatient Referral Count Last Ordered Date st Ordered Date AMB REFERRAL TO VASCULAR SURGERY 1 05/16/20 documented in this encounter Care Teams Office Helper Relationship Specialty Start Date End Date Cherise Joseph DO [address] [place] [address] [address] [place] [address] PCP - General Family Medicine 04/20/25 Alicia Larsen MD [address] [place] [address] [address] [place] [address] Referring Physician Internal Medicine 04/22/25 documented as of this encounter
--- OUTSIDE RECORDS SUMMARY | 2025-05-16 17:03 | XMS_ITS | Clinical Summary ---
Author Organization [facility] [address] Address [address] [place] [address] Care Team Providers Care Strand Galvanizer Name Role Phone Cherise Joseph DO Primary Care Provider [phone] Alicia Larsen MD Unavailable Allergies Active Allergy Reactions Criticality Noted Date Comments Hydrocodone Nausea & Vomiting Low 11/28/2022 Hydrocodone-Acetaminophen Nausea & Vomiting,Unknown Low 02/16/2020 Medications lisinopriL (PRINIVIL,ZESTR IL) 40 mg tabletIndicatio ns:hypertension Take 1 tablet (40 mg total) by mouth every morning 02/02/20 20 Active metFORMIN XR (GLUCOPHAGE XR) 750 mg 24 hr tabletIndicatio ns:type 2 diabetes mellitus Take 1 tablet (750 mg total) by mouth 2 (two) times a day 02/02/20 20 Active cholecalciferol (VITAMIN D-3) 25 mcg (1,000 unit) tabletIndicatio ns:Vitamin D Deficiency Take 1 tablet (1,000 Units total) by mouth every morning Active ascorbic acid (VITAMIN C) 1,000 mg tabletIndicatio ns:Vitamin C Deficiency Take 1 tablet (1,000 mg total) by mouth nightly Active multivitamin capsuleIndicati ons:Vitamin Deficiency Prevention Take 1 capsule by mouth every morning Active amLODIPine (NORVASC) 10 mg tabletIndicatio ns:hypertension Take 1 tablet (10 mg total) by mouth every morning 12/26/19 21 Active calcipotriene (DOVONOX) 0.005 % creamIndication s:Plaque Psoriasis Apply 1 application topically 2 (two) times a day 01/31/20 21 Active aspirin 81 mg enteric coated tablet Take 1 tablet (81 mg total) by mouth daily 30 tablet 11 10/16/20 22 Active acetaminophen (TYLENOL) 500 mg tabletIndicatio ns:Pain Take 2 tablets (1,000 mg total) by mouth every 6 (six) hours as needed for pain Active spironolactone (ALDACTONE) 25 mg tablet Take 1 tablet (25 mg total) by mouth daily 30 tablet 04/14/20 24 Active carvediloL (COREG) 6.25 mg tablet Take 1 tablet (6.25 mg total) by mouth 2 (two) times a day with meals 60 tablet 04/14/20 24 Active Eliquis 5 mg tabletIndicatio ns:atrial fibrillation Take 1 tablet (5 mg total) by mouth 2 (two) times a day Please resume your home dose Eliquis on Friday02/10/2023. 30 tablet 3 04/18/20 25 Active rosuvastatin (CRESTOR) 40 mg tablet Take 1 tablet (40 mg total) by mouth nightly 90 tablet 6 04/20/20 25 Active varenicline tartrate (CHANTIX) 1 mg tabletIndicatio ns:Smoking Cessation Take 0.5 tablets (0.5 mg total) by mouth 2 (two) times a day for 7 days, THEN 1 tablet (1 mg total) 2 (two) times a day for 9 days. Take with full glass of water. 60 tablet 3 04/20/20 25 Active Eliquis 5 mg tabletIndicatio ns:atrial fibrillation Take 1 tablet (5 mg total) by mouth 2 (two) times a day Please resume your home dose Eliquis on Friday02/10/2023. 30 tablet 02/07/20 23 2024 Discontinued(Ping turner) rosuvastatin (CRESTOR) 40 mg tablet TAKE 1 TABLET BY MOUTH AT NIGHT 100 tablet 2 06/30/20 23 2024 Discontinued Active Problems Problem Noted Date Diagnosed Date Atrial fibrillation 02/05/2023 Assessment & Plan (02/05/2023 6:00 AM CHEMISTRY TECHNICIAN): Known hx of p. A fib on Eliquis as outpatient. 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 - Continue aspirin and statin. - Hold Eliquis for now. D/w team timing of restart. - Telemetry with OU monitoring. - Continue home metoprolol of BP and HR allows following carotid endarterectomy. HTN (hypertension) 02/05/2023 Assessment & Plan (02/05/2023 6:01 AM CHEMISTRY TECHNICIAN): Home regimen: amlodipine 10mg daily, chlorthalidone 25mg daily, lisinopril 40mg daily, metoprolol 25mg BID. - Resume home regimen as able following OR. Start with metoprolol. Diabetes mellitus 02/05/2023 Assessment & Plan (02/05/2023 6:02 AM CHEMISTRY TECHNICIAN): On metformin as outpatient. - Hold metformin for now. Start SSI and monitor glucose checks. Plan to restart metformin at discharge. Carotid artery calcification, left 02/05/2023 Stenosis of left carotid artery 11/08/2022 Overview (11/08/2022): Added automatically from request for surgery [id number] Assessment & Plan (02/05/2023 5:59 AM CHEMISTRY TECHNICIAN): Found on carotid duplex following finding of carotid bruit. - OR 02/05/2023 for left carotid endarterectomy. - Continue aspirin and statin. - BP goals 100-150. - CLD. - OU status overnight. - DC arterial line and Mccray in AM. - Q2h NV checks. Morbid (severe) obesity due to excess calories 1 12/16/2021 Other thrombophilia 10/16/2022 Encounters Date Type Department Care Team Description 05/16/2025 3:15 PM CDT Office Visit [facility] [address] [place] [address] [address] [place] [phone] James Shaikh MD Left carotid stenosis 05/16/2025 2:30 PM CDT Ancillary Procedure [facility] [address] [place] [address] [address] [place] [phone] Left carotid stenosis 05/16/2025 Documentation [facility] [address] [facility] Medical Office Building [address], [place] [address] Nanette Mon RMA 04/20/2025 9:45 AM CDT Office Visit [facility] Medical [facility] Cardiology [address] [place] [phone] Dhruv Shahid MD Paroxysmal atrial fibrillation (HCC) (Primary Dx); Chronic anticoagulation; Hypertension associated with diabetes (HCC); S/P carotid endarterectomy; ELIZABETH on CPAP; Morbid obesity with BMI of 40.0-44.9, adult (HCC); Lipid screening; Engages in vaping; Tobacco abuse 04/20/2025 Telephone [facility] [address] [place] [phone] Dhruv Shahid MD 04/18/2025 Telephone [facility] Cardiology [address] [place] [phone] Dhruv Shahid MD from Last 3 Months Surgical History Surgery Date Site/Laterality Comments UTERINE FIBROID SURGERY CHOLECYSTECTOMY ECTOPIC TOTAL HIP ARTHROPLASTY Left Medical History Medical History Date Comments Atrial fibrillation (HCC) Hypertension Hyperlipidemia Sleep apnea Diabetes mellitus (HCC) Family History Medical History Relation Name Comments No Known Problems Brother 1 Cancer Brother 2 Hypertension Brother 2 Cancer Brother 3 heart valve replacement Brother 3 Aneurysm Brother 4 Cancer Brother 4 Heart attack Brother 4 Heart failure Father Cancer Mother Hypertension Mother Hypertension Sister Relation Name Status Comments Brother 1 Alive Brother 2 Alive Brother 3 Alive Brother 4 Alive Father (Age 96) Mother (Age 79) Sister Alive Social History Tobacco Use Types Packs/Day Years [...] on file Legal Sex Female 10:27 AM CHEMISTRY TECHNICIAN Gender Identity Not on file Sexual Orientation Not on file Obstetrics History Last Filed Vital Signs Vital Sign Reading [...] Mass Index 40.09 05/16/2025 2:38 PM CDT Plan of Treatment Health Maintenance Due Date Last Done Comments Albumin Creatinine Ratio, Urine 1955 Breast Cancer Screening-Mammogram 1955 Colon Cancer Screening-Colonoscopy 1955 Depression Screening 1955 Hepatitis C Screening 1955 Osteoporosis Screening-Bone Density Scan 1955 Dilated Eye Exam 1955 Foot Exam 1955 DTaP/Tdap/Td Vaccine (1 - Tdap) 1965 Hepatitis B Screening 1972 Pneumococcal vaccine 65+ (1 of 2 - PCV) 1973 Lung Cancer Screening 2004 Zoster Vaccine (1 of 2) 2004 Well Visit 65+ 2019 Hemoglobin A1C 05/29/2023 11/28/2022 Fall Risk Assessment 02/07/2024 02/06/2023 eGFR 04/30/2025 04/30/2024, 03/0 07/2023, 01/27/2023, Additional history exists Influenza Vaccine (Season Ended) 2025 09/27/2020, 04/06/2018, 01/29/2018, Additional history exists Lipid Panel 04/20/2026 04/20/2025, 03/31, 02/05/2023, Additional history exists Medical Devices Implanted Type Area Sexton Helper Device Identifier Shelf Expiration Date Model / Serial / Lot IntelliMat Vascu-Guard 8x.8cm Peripheral Patch Vascular Bovine Pericardium [id number] - [id number] - [id number] Implanted:Qty: 1 on 02/05/2023 by James Shaikh MD at [facility] Other - see comments Left: Carotid IntelliMat [id number] 02/06/2026 [id number] / 00 / [id number] Description:Bovine pericardi al patch Procedures Procedure Name Priority Date/Time Associated Diagnosis Comments US CAROTIDS DUPLEX BILATERAL Schedule Routine, Read Routine (OP Routine) 05/16/2025 2:48 PM CDT Left carotid stenosis POCT LIPID PANEL Routine 04/20/2025 9:49 AM CDT Lipid screening BASIC METABOLIC PANEL Routine 04/30/2024 Hypertension associated with diabetes (HCC) POCT HEMOGLOBIN A1C Routine 11/28/2022 1:39 PM CHEMISTRY TECHNICIAN from Last 3 Months or Most Recently Relevant to Health Maintenance Results * US Carotids Duplex Bilateral (05/16/2025 2:48 PM CDT) Anatomical Region Laterality Modality Vascular Bilateral Ultrasound 05/16/2025 2:22 PM CDT Narrative 05/16/2025 4:47 PM CDT [facility] - Department of Vascular Surgery, Vascular Laboratory [address] [place] [address] Carotid Duplex Ultrasound Report Patient Name: LISA REED : 1955 (69y 7m) Study Date: 05/16/2025 2:22:45 PM Gender: F Tech: Location: [facility] Ref Provider: JAMES SHAIKH Quality: Adequate Order Provider: JAMES SHAIKH PROCEDURES: Carotid Report: Carotid duplex examination of the extracranial arteries was performed using 2D, color and spectral Doppler. INDICATIONS: I65.22 Occlusion and stenosis of left carotid artery. MEASUREMENTS: Right Value Units Left Value Units RT Prox CCA PSV 104 cm/sec LT Prox CCA PSV 64 cm/sec RT Prox CCA EDV 19 cm/sec LT Prox CCA EDV 12 cm/sec RT Distal CCA PSV 78 cm/sec LT Distal CCA PSV 71 cm/sec RT Distal CCA EDV 17 cm/sec LT Distal CCA EDV 16 cm/sec RT Prox ICA PSV 76 cm/sec LT Prox ICA PSV 305 cm/sec RT Prox ICA EDV 22 cm/sec LT Prox ICA EDV 63 cm/sec RT Mid ICA PSV 118 cm/sec LT Mid ICA PSV 136 cm/sec RT Mid ICA EDV 31 cm/sec LT Mid ICA EDV 21 cm/sec RT Distal ICA PSV 108 cm/sec LT Distal ICA PSV 113 cm/sec RT Distal ICA EDV 28 cm/sec LT Distal ICA EDV 28 cm/sec RT ECA Prx PSV 101 cm/sec LT ECA Prx PSV 154 cm/sec RT ICA/CCA 1.51 ratio LT ICA/CCA 4.30 ratio RT VERT PSV 55 cm/sec LT VERT PSV 81 cm/sec FINDINGS: Performing Occupational Therapy Assistant: Mile Blanca RVT. Rt Common Carotid Artery: The plaque in the right CCA appears to be heterogeneous and irregular. Atherosclerotic changes of the right common carotid artery with no hemodynamically significant Doppler findings. Rt Internal Carotid Artery: Duplex imaging of the right internal carotid artery is within normal limits without evidence for atherosclerotic disease. Rt External Carotid Artery: The right external carotid artery is patent without evidence of atherosclerotic plaque. Rt Vertebral Artery: The right vertebral artery is patent with antegrade flow. Lt Common Carotid Artery: The plaque in the left CCA appears to be heterogeneous and irregular. Atherosclerotic changes of the left common carotid artery with no hemodynamically significant Doppler findings. Lt Internal Carotid Artery: Significant increased velocities with no evidence of intraluminal material in the left internal carotid artery with elevated peak systolic velocity and end diastolic velocity, as above. >70% stenosis per PSV and ratio and 50-69% per EDV. Elevated velocities are due to tortuosity. Lt External Carotid Artery: The left external carotid artery is patent without evidence of atherosclerotic plaque. Lt Vertebral Artery: The left vertebral artery is patent with antegrade flow. CONCLUSIONS: 1. Normal right internal carotid artery, no evidence of significant plaque. 2. The left internal carotid artery disease is consistent with a more than 70% stenosis per PSV and ratio and 50-69% per EDV. Elevated velocities are due to tortuosity. No evidence of intraluminal material noted 3. No evidence of hemodynamically significant stenosis in the common carotid artery bilaterally. 4. Normal, antegrade flow is noted in bilateral vertebral arteries. HISTORY: 02/05/23 left carotid endarterectomy Carotid stenosis, AF, HTN, DM, Obesity, former smoker. PREVIOUS STUDIES: Previous carotid ultrasound on 07/26/24 R= Normal; L= >70 per PSV; Ant verts bilat. DISCLAIMER: The study images and the final report will be retained in the patient chart by the Vascular Laboratory for the legally required time period. This chart constitutes the legal record of any testing performed. ATTESTATION: I have reviewed and interpreted the pertinent images and measurements of this study. I attest to the conclusions in the final report that is provided above. Electronically Signed By: James HERNANDEZ OR 05/16/2025 4:22:40 PM CDT Procedure Note James Shaikh MD - 05/16/2025 [facility] - Department of Vascular Surgery,Vascular Laboratory [address] [place] [address] Carotid Duplex Ultrasound Report Patient Name: LISA REED : 1955 (69y 7m) Study Date: 05/16/2025 2:22:45 PM Gender: F Tech: Location: [facility] Ref Provider: JAMES SHAIKH Quality: Adequate Order Provider: JAMES SHAIKH PROCEDURES: Carotid Report: Carotid duplex examination of the extracranial arterieswas performed using 2D, color and spectral Doppler. INDICATIONS: I65.22 Occlusion and stenosis of left carotid artery. MEASUREMENTS: Right Value Units Left Value Units RT Prox CCA PSV 104 cm/sec LT Prox CCA PSV 64 cm/sec RT Prox CCA EDV 19 cm/sec LT Prox CCA EDV 12 cm/sec RT Distal CCA PSV 78 cm/sec LT Distal CCA PSV 71 cm/sec RT Distal CCA EDV 17 cm/sec LT Distal CCA EDV 16 cm/sec RT Prox ICA PSV 76 cm/sec LT Prox ICA PSV 305 cm/sec RT Prox ICA EDV 22 cm/sec LT Prox ICA EDV 63 cm/sec RT Mid ICA PSV 118 cm/sec LT Mid ICA PSV 136 cm/sec RT Mid ICA EDV 31 cm/sec LT Mid ICA EDV 21 cm/sec RT Distal ICA PSV 108 cm/sec LT Distal ICA PSV 113 cm/sec RT Distal ICA EDV 28 cm/sec LT Distal ICA EDV 28 cm/sec RT ECA Prx PSV 101 cm/sec LT ECA Prx PSV 154 cm/sec RT ICA/CCA 1.51 ratio LT ICA/CCA 4.30 ratio RT VERT PSV 55 cm/sec LT VERT PSV 81 cm/sec FINDINGS: Performing Occupational Therapy Assistant: Mile Blanca RVT. Rt Common Carotid Artery: The plaque in the right CCA appears to beheterogeneous and irregular. Atherosclerotic changes of the right common carotid artery withno hemodynamically significant Doppler findings. Rt Internal Carotid Artery: Duplex imaging of the right internal carotidartery is within normal limits without evidence for atherosclerotic disease. Rt External Carotid Artery: The right external carotid artery is patentwithout evidence of atherosclerotic plaque. Rt Vertebral Artery: The right vertebral artery is patent with antegradeflow. Lt Common Carotid Artery: The plaque in the left CCA appears to beheterogeneous and irregular. Atherosclerotic changes of the left common carotid artery withno hemodynamically significant Doppler findings. Lt Internal Carotid Artery: Significant increased velocities with noevidence of intraluminal material in the left internal carotid artery with elevatedpeak systolic velocity and end diastolic velocity, as above. >70% stenosis per PSV andratio and 50-69% per EDV. Elevated velocities are due to tortuosity. Lt External Carotid Artery: The left external carotid artery is patentwithout evidence of atherosclerotic plaque. Lt Vertebral Artery: The left vertebral artery is patent with antegradeflow. CONCLUSIONS: 1. Normal right internal carotid artery, no evidence of significantplaque. 2. The left internal carotid artery disease is consistent with a more than70% stenosis per PSV and ratio and 50-69% per EDV. Elevated velocities are due to tortuosity. No evidence of intraluminalmaterial noted 3. No evidence of hemodynamically significant stenosis in the commoncarotid artery bilaterally. 4. Normal, antegrade flow is noted in bilateral vertebral arteries. HISTORY: 02/05/23 left carotid endarterectomy Carotid stenosis, AF, HTN, DM, Obesity, former smoker. PREVIOUS STUDIES: Previous carotid ultrasound on 07/26/24 R= Normal; L= >70 per PSV; Antverts bilat. DISCLAIMER: The study images and the final report will be retained in the patientchart by the Vascular Laboratory for the legally required time period. This chartconstitutes the legal record of any testing performed. ATTESTATION: I have reviewed and interpreted the pertinent images and measurements ofthis study. I attest to the conclusions in the final report that is provided above. Electronically Signed By: James HERNANDEZ OR 05/16/2025 4:22:40 PM CDT James Shaikh MD IM US PROCEDURES Final Resu lt * (ABNORMAL) POCT lipid panel (04/20/2025 9:49 AM CDT) Cholesterol, POC 194 <200 MG/DL HDL, POC 39(A) >=40 mg/dL Triglycerides, POC 215(A) <=149 mg/dL LDL Cholesterol POC 112 <=129 mg/dL Chol/HDL Ratio, POC 2.9 NONE Non-HDL Cholesterol, POC 155 NONE mg/dL Cholesterol Total, POC 194 30 - 199 mg/dL Capillary blood 04/20/2025 9 :49 AM CDT Dhruv Shahid MD POINT OF CARE TEST ORDERABLES Fi nal Result * (ABNORMAL) Basic metabolic panel (04/30/2024) SCRIBED Sodium 136 135 - 146 mmol/L [facility] Potassium 4.8 3.5 - 5.3 mmol/L [facility] Chloride 101 98 - 110 mmol/L [facility] Carbon Dioxide 7(A) 20 - 32 mmol/L [facility] Anion Gap N/A N/A mmol/L [facility] Urea Nitrogen (BUN) 20 7 - 25 mg/dl [facility] Creatinine 0.97 0.50 - 1.05 mg/dl [facility] Glucose 110(A) 65 - 99 mg/dl [facility] Calcium 10.3 8.6 - 10.4 mg/dl [facility] eGFR in N/A N/A [facility] SCRIBED eGFR in NonAfrican Maltese 63 > or = 60 [facility] Blood 04/30/2024 Dhruv Shahid MD LAB BLOOD ORDERABLES Final Resul t [facility] * (ABNORMAL) POCT hemoglobin A1c (11/28/2022 1:39 PM CHEMISTRY TECHNICIAN) Hgb A1C, POC 6.2(H) 4.0 - 5.6 % [facility] Est Average Gluc POC 131 mg/dL [facility] Comment: The ADA recommends reporting an estimated Average Glucose (eAG) with all Hemoglobin A1c results using the equation derived from a study of 507 normal and diabetic adults. Minority populations were underrepresented and children were not included. (Diabetes Care 31:0353-3261, 2008). The eAG is not equivalent to a fasting glucose. Blood 11/28/2022 1:39 PM CHEMISTRY TECHNICIAN 11/28/2022 1:39 PM CHEMISTRY TECHNICIAN James Shaikh MD POINT OF CARE TEST ORDERABLE S Final Result Performing Organization Address City/[facility] Co de Phone Number [facility] Department [place] [address] from Last 3 Months or Most Recently Relevant to Health Maintenance Insurance [facility] ADVANTAGE [facility] Address: [address] [address] [place] [address] [employer]HC MEDICARE ADVANTAGE [facility] Address: [address] [address] [place] [address] UHC MEDICARE ADVANTAGE Advance Directives For more information, please contact: [phone] * Full Code (Latest Code Status on File) Date Activated Date Inactivated Comments 02/05/2023 4:40 PM 02/06/2023 7:54 PM Care Teams Strand Galvanizer Relationship Specialty Start Date End Date Cherise Joseph DO [address] [place] [address] [place] [address] PCP - General Family Medicine 04/20/25 Alicia Larsen MD [facility] [place] [address] Referring Physician Internal Medicine 04/22/25
--- OUTSIDE RECORDS SUMMARY | 2025-05-16 17:03 | XMS_ITS | Encounter Summary ---
Author Organization [facility] Address [address] [place] [address] Care Team Providers Care Art Supervisor Name Role Phone Lenard Fan MD Primary Care Provider [phone] Encounter Details Date Type Department Care Team (Late st Contact Info) Description 05/08/2019 Abstract SFL CONVERSION [address] [address] , Generic Conversion, Social History Tobacco Use Types Packs/Day Years Used Date Smoking Tobacco: Never Assessed Comments Unknown Sex and Gender Information Value Date Recorded Sex Assigned at Not on file Legal Sex Female 5:45 PM [employer] Gender Identity Not on file Sexual Orientation Not on file documented as of this encounter Plan of Treatment Not on file documented as of this encounter Visit Diagnoses Not on filedocumented in this encounter Care Teams Art Supervisor Relationship Specialty Start Date End Date Lenard Fan MD [address] [place] [phone] PCP - General FAMILY PRACTICE 08/25/19 documented as of this encounter
--- OUTSIDE RECORDS SUMMARY | 2025-05-16 17:03 | XMS_ITS | Patient Health Record ---
Author Organization [facility] Orthopedics [facility] Address [address] [place], [place] [address] Care Team Providers Care Fire Protection Designer Name Role Phone Lenard Fan Primary Care Provider Len Urbano [phone] ALLERGIES Allergen (clinical drug ingredient) Drug/Non Drug Allergy documented on EMR Reaction Allergy Type Onset Date Status Vicodin Unknown Drug Allergy Active REASON FOR REFERRAL No Information MEDICATIONS Medication SIG (Take, Route, Fr equency, Duration) Notes Start Date End Date Status Lisinopril Active amLODIPine Besylate Active metFORMIN HCl Active SOCIAL HISTORY Tobacco Use: Social History Observation Description Date Details (start date - stop date) Former Smoker NA - NA Sex Assigned At : Social History Observation Description Sex Assigned At Unknown Tobacco Use/Smoking Question Answer Notes Are you a former smoker When did you start smoking? 1970 When did you stop smoking? 2016 PROBLEMS Problem Type ICD Code Onset Dates Problem Status W/U Status Risk SNOMED Code Notes Problem Diabetes (E11.9) Active confirmed Problem Hypertension (I10) Active confirmed Hypertension (57642457) Problem Essential (primary) hypertension (I10) Active confirmed 94466905 Problem Primary osteoarthritis of left hip (M16.12) Active confirmed 177236968 Problem H/O total hip arthroplasty (Z96.649) Active confirmed 526835188232 Problem Primary osteoarthritis of right hip (M16.11) Active confirmed 838218382545227 Problem Left hip pain (M25.552) Active confirmed Arthralgia of t he pelvic region and thigh (477882492) PLAN OF TREATMENT Pending Test Test Name Order Date X ray : Hip, left, 2 11/04/2019 X ray : Hip, left, 2 06/26/2023 X ray : Hip, left, 2 01/06/2020 X ray : Hip, left, 2 10/05/2020 X ray : Hip, left, 2 10/04/2021 X ray : Hip, left, 2 04/16/2019 X ray : Hip, right, 2 04/18/2022 Ultrasound : Hip, Right 04/18/2022 Insurance Providers Payer Name Payer Address Payer Phone Subscriber Number Group Number Insured Name Patient Relationship to Insured Coverage Start Date Coverage End Date [facility] [address] [address] [place] [address] [id number] Lisa Reed Self - patient is the insured MEDICATIONS ADMINISTERED Medication Instructions Date of Administration Dosage Notes Betamethasone/ sodium phosphate 6mg 04/16/2019 Betamethasone/ sodium phosphate 6mg 04/18/2022 MEDICAL (GENERAL) HISTORY Medical History History ICD Code Diabetes E11.9 Hypertension I10 Surgical History Surgery Date(Month/Year) Gall Bladder Removed 2x Tumor Removed Left Total Hip Replacement Hospitalization History Reason Date(Month/Year) Same as Surgical Hx
--- OUTSIDE RECORDS SUMMARY | 2025-05-16 17:03 | XMS_ITS | Referral Summary ---
Author Organization [facility] [address] [place] [address] 162 Address [address] [place] [address] Care Team Providers Care Technician Submarine Cable Equipment Name Role Phone Cherise Joseph DO Primary Care Provider [phone] Alicia Larsen MD Unavailable Encounters Date Type Department Care Team Description 05/16/2025 Documentation [facility] Surgery [address] [place] [address] Medical Office Building [address] [place] [phone] Nanette Mon RMA 05/16/2025 3:15 PM CDT Office Visit [facility] Surgery [address] [place] [address] Office Building [address] [place] [phone] James Shaikh MD Left carotid stenosis 05/16/2025 2:30 PM CDT Ancillary Procedure [facility] Vascular Lab [address] [place] [address] Medical Office Building [address] [place] [phone] Left carotid stenosis 04/20/2025 Telephone [facility] Cardiology [address] [place] [phone] Dhruv Shahid MD 04/20/2025 9:45 AM CDT Office Visit [facility] Cardiology [address] [place] [address] Dhruv Shahid MD Paroxysmal atrial fibrillation (HCC) (Primary Dx); Chronic anticoagulation; Hypertension associated with diabetes (HCC); S/P carotid endarterectomy; ELIZABETH on CPAP; Morbid obesity with BMI of 40.0-44.9, adult (HCC); Lipid screening; Engages in vaping; Tobacco abuse 04/18/2025 Telephone [facility] Cardiology [address] [place] [address] Dhruv Shahid MD from Last 3 Months Allergies Active Allergy Reactions Criticality Noted Date [...] mg total) by mouth daily 30 tablet 10/16/20 22 Active acetaminophen (TYLENOL) 500 mg [...] times a day with meals 60 tablet 11 04/14/20 24 Active Eliquis 5 mg tabletIndicatio [...] on Friday02/10/2023. 30 tablet 02/07/20 23 2024 Discontinued(R eorder) rosuvastatin (CRESTOR) 40 mg tablet TAKE 1 TABLET BY MOUTH AT NIGHT 100 tablet 2 06/30/20 23 2024 Discontinued Active Problems Problem Noted Date Diagnosed Date Atrial fibrillation 02/05/2023 Assessment & Plan (02/05/2023 6:00 AM RESPITE COORDINATOR): Known hx of p. Eladio fib on Eliquis as outpatient. She was bridged with Lovenox at the direction of her rn building. - Continue aspirin and statin. - Hold Eliquis for now. D/w team timing of restart. - Telemetry with OU monitoring. - Continue home metoprolol of BP and HR allows following carotid endarterectomy. HTN (hypertension) 02/05/2023 Assessment & Plan (02/05/2023 6:01 AM RESPITE COORDINATOR): Home regimen: amlodipine 10mg daily, chlorthalidone 25mg daily, lisinopril 40mg daily, metoprolol 25mg BID. - Resume home regimen as able following OR. Start with metoprolol. Diabetes mellitus 02/05/2023 Assessment & Plan (02/05/2023 6:02 AM RESPITE COORDINATOR): On metformin as outpatient. - Hold metformin for now. Start SSI and monitor glucose checks. Plan to restart metformin at discharge. Carotid artery calcification, left 02/05/2023 Stenosis of left carotid artery 11/08/2022 Overview (11/08/2022): Added automatically from request for surgery [id number] Assessment & Plan (02/05/2023 5:59 AM RESPITE COORDINATOR): Found on carotid duplex following finding of carotid bruit. - OR 02/05/2023 for left carotid endarterectomy. - Continue aspirin and statin. - BP goals 100-150. - CLD. - OU status overnight. - DC arterial line and Mccray in AM. - Q2h NV checks. Morbid (severe) obesity due to excess calories 1 12/16/2021 Other thrombophilia 10/16/2022 Social History Tobacco Use Types Packs/Day Years [...] on file Legal Sex Female 10:27 AM RESPITE COORDINATOR Gender Identity Not on file Sexual Orientation [...] 05/16/2025 2:38 PM CDT Plan of Treatment Not on file Medical Devices Implanted Type Area Zoogler Device Identifier Shelf Expiration Date Model / Serial / Lot Selectable Media Vascu-Guard 8x.8cm Peripheral Patch Vascular Bovine Pericardium Vg-[id number] - S00 - [id number] Implanted:Qty: 1 on 02/05/2023 by James Shaikh MD at [facility] Other - see comments Left: Carotid Selectable Media [id number] 02/06/2026 [id number]-[id number] / 00 / [id number] Description:Bovine pericardi al patch Procedures Procedure Name Priority Date/Time Associated Diagnosis Comments US CAROTIDS DUPLEX BILATERAL Schedule Routine, Read Routine (OP Routine) 05/16/2025 2:48 PM CDT Left carotid stenosis POCT LIPID PANEL Routine 04/20/2025 9:49 AM CDT Lipid screening BASIC METABOLIC PANEL Routine 04/30/2024 Hypertension associated with diabetes (HCC) POCT HEMOGLOBIN A1C Routine 11/28/2022 1:39 PM RESPITE COORDINATOR from Last 3 Months or Most Recently Relevant to Health Maintenance Results * US Carotids Duplex Bilateral (05/16/2025 2:48 PM CDT) Anatomical Region Laterality Modality Vascular Bilateral Ultrasound 05/16/2025 2:22 PM CDT Narrative 05/16/2025 4:47 PM CDT [facility] - Department of Vascular Surgery, Vascular Laboratory [address] [place] [address] Carotid Duplex Ultrasound Report Patient Name: LISA REED : 1955 (69y 7m) Study Date: 05/16/2025 2:22:45 PM Gender: F Tech: Location: [place] Provider: JAMES SHAIKH Quality: Adequate Order Provider: [...] LT VERT PSV 81 cm/sec FINDINGS: Performing Termite Control Service Representative: TOMÁS DollT. Rt Common Carotid Artery: The plaque in [...] Procedure Note James Shaikh MD - 05/16/2025 [facility] - Department of Vascular Surgery,Vascular Laboratory [address] [place] [address] Carotid Duplex Ultrasound Report Patient Name: LISA REED : 1955 (69y 7m) Study Date: 05/16/2025 2:22:45 PM Gender: F Tech: Location: [facility] Ref Provider: JAMES SHAIKH Quality: Adequate Order [...] LT VERT PSV 81 cm/sec FINDINGS: Performing Termite Control Service Representative: Mile Blanca RVT. Rt Common Carotid Artery: [...] 05/16/2025 4:22:40 PM CDT James Shaikh MD [facility] US PROCEDURES Final Resu lt * (ABNORMAL) [...] N/A N/A [facility] SCRIBED eGFR in NonAfrican South Korean 63 > or = 60 [facility] Blood 04/30/2024 Dhruv Shahid MD LAB BLOOD ORDERABLES Final Resul t [facility] * (ABNORMAL) POCT hemoglobin A1c (11/28/2022 1:39 PM RESPITE COORDINATOR) Hgb A1C, POC 6.2(H) 4.0 - 5.6 % [facility] Est Average Gluc POC 131 mg/dL [facility] Comment: The ADA recommends reporting an estimated Average Glucose (eAG) with all Hemoglobin A1c results using the equation derived from a study of 507 normal and diabetic adults. Minority populations were underrepresented and children were not included. (Diabetes Care 31:8907-0222, 2008). The eAG is not equivalent to a fasting glucose. Blood 11/28/2022 1:39 PM RESPITE COORDINATOR 11/28/2022 1:39 PM RESPITE COORDINATOR us James Shaikh MD POINT OF CARE TEST ORDERABLE S Final Result [facility] Department [place] [address] from Last 3 Months or Most Recently Relevant to Health Maintenance Insurance [facility] MEDICARE ADVANTAGE UHC MEDICARE ADVANTAGE UHC MEDICARE ADVANTAGE Advance Directives For more information, please contact: [phone] * Full Code (Latest Code Status on File) Date Activated Date Inactivated Comments 02/05/2023 4:40 PM 02/06/2023 7:54 PM Care Teams Technician Submarine Cable Equipment Relationship Specialty Start Date End Date JulitarehanchariCherise DO [address] [place] [address] [address] [place], [place] [phone] PCP - General Family Medicine 04/20/25 Alicia Larsen MD [address] [place] [address] [address] [place] [address] Referring Physician Internal Medicine 04/22/25
--- OUTSIDE RECORDS SUMMARY | 2025-05-16 17:03 | XMS_ITS | Encounter Summary ---
Author Organization [facility] Address [address] [place] [address] Phone Care Team Providers Care Pumper Hand Name Role Phone Cherise Joseph Primary Care Provider [phone] Alicia Larsen MD Unavailable [phone] Reason for Visit * Diagnostic Imaging (Routine) - Closed Specialty Diagnoses / Procedures Referred By Contac elton Referred To Contact Diagnoses Left carotid stenosis Procedures US Carotids Duplex Bilateral [place]ikh [place] [id number] [place] [address] [address] [place] [address] Phone: tel: fax: [facility] (All Locations) Referral ID Status Reason Start Date Expiration Date Visits Re quested Visits Authorized [id number] Closed 11/01/2024 12/01/2025 1 1 Encounter Details Date Type Department Care Team (Latest Contact Info) Description 05/16/2025 2:30 PM CDT Ancillary Procedure [facility] Vascular Lab [address] [facility] Medical Office Building [address] [place] [phone] Left carotid stenosis Social History Tobacco Use Types Packs/Day Years Used Date Smoking Tobacco: Former Cigarettes 1 51 1 - 2020 Passive Smoke Exposure: Past Smokeless [...] on file Legal Sex Female 10:27 AM CHRO Gender Identity Not on file Sexual Orientation Not on file documented as of this encounter Plan of Treatment Not on file documented as of this encounter Procedures Procedure Name Priority Date/Time Associated Diagnosis Comments US CAROTIDS DUPLEX BILATERAL Schedule Routine, Read Routine (OP Routine) 05/16/2025 2:48 PM CDT Left carotid stenosis documented in this encounter Results * US Carotids Duplex Bilateral (05/16/2025 2:48 PM CDT) Anatomical Region Laterality Modality Vascular Bilateral Ultrasound 05/16/2025 2:22 PM CDT Narrative 05/16/2025 4:47 PM CDT [facility] - Department of Vascular Surgery, Vascular Laboratory [address] [place] [address] Carotid Duplex Ultrasound Report Patient Name: LISA REED : 1955 (69y 7m) Study Date: 05/16/2025 2:22:45 PM Gender: F Tech: Location: [facility] Provider: JAMES SHAIKH Quality: Adequate Order Provider: [...] LT VERT PSV 81 cm/sec FINDINGS: Performing Billing Representative: Mile Blanca RVT. Rt Common Carotid [...] Procedure Note James Shaikh MD - 05/16/2025 [facility] - Department of Vascular Surgery,Vascular Laboratory [address] [place] [address] Carotid Duplex Ultrasound Report Patient Name: LISA REED : 1955 (69y 7m) Study Date: 05/16/2025 2:22:45 PM Gender: F Tech: Location: [facility] Ref Provider: JMAES SHAIKH Quality: Adequate Order Provider: JAMES SHAIKH [...] LT VERT PSV 81 cm/sec FINDINGS: Performing Billing Representative: Mile Blanca RVT. Rt Common Carotid [...] is provided above. Electronically Signed By: James ABDUL 05/16/2025 4:22:40 PM CDT James Shaikh MD [facility] PROCEDURES Final Resu lt documented in this encounter Visit Diagnoses Diagnosis Left carotid stenosis documented in this encounter Care Teams Pumper Hand Relationship Specialty Start Date End Date JulitarehanchariCherise DO [address] [facility] [address] [place], [place] [phone] PCP - General Family Medicine 04/20/25 Alicia Larsen MD [address] [place] [address] [address] [place] [address] Referring Physician Internal Medicine 04/22/25 documented as of this encounter
--- OUTSIDE RECORDS SUMMARY | 2025-05-19 12:19 | XMS_ITS | Referral Summary ---
Author Organization [facility] [address] [place] [address] 162 Address [address] [place] [address] Care Team Providers Care Aggregate Conveyor Operator Name Role Phone Cherise Joseph DO Primary Care Provider [phone] Alicia Larsen MD Unavailable Encounters Date Type Department Care Team Description 05/18/2025 Telephone [facility] Cardiology [address] [place] [phone] Dhruv Shahid MD 05/16/2025 Documentation [facility] Surgery [address] [place] [address] Medical Office Building [address] [place] [phone] Yaa NanetteBECKIE esparza 05/16/2025 3:15 PM CDT Office Visit [facility] Surgery [address] [place] [address] Medical Office Building [address] [place] [phone] James Shaikh MD Left carotid stenosis 05/16/2025 2:30 PM CDT Ancillary Procedure [facility] Vascular Lab [address] [place] [address] Medical Office Building 1 [address] [phone] Left carotid stenosis 04/20/2025 Telephone [facility] Cardiology [address] [place] [phone] Dhruv Shahid MD 04/20/2025 9:45 AM CDT Office Visit [facility] Cardiology [address] [place] [phone] Dhruv Shahid MD Paroxysmal atrial fibrillation (HCC) (Primary Dx); Chronic anticoagulation; Hypertension associated with diabetes (HCC); S/P carotid endarterectomy; ELIZABETH on CPAP; Morbid obesity with BMI of 40.0-44.9, adult (HCC); Lipid screening; Engages in vaping; Tobacco abuse 04/18/2025 Telephone [facility] Cardiology [address] [place] [address] Dhruv Shahid MD from Last 3 Months Allergies Active Allergy Reactions Criticality Noted Date Comments Hydrocodone Nausea & Vomiting Low 11/28/2022 Hydrocodone-Acetaminophen Nausea & Vomiting,Unknown Low 02/16/2020 Medications lisinopriL (PRINIVIL,ZESTR ME) 40 mg tabletIndicatio ns:hypertension Take 1 tablet [...] total) by mouth daily 30 tablet 11 04/14/20 24 Active carvediloL (COREG) 6.25 mg [...] water. 60 tablet 3 04/20/20 25 Active rosuvastatin (CRESTOR) 40 mg tablet TAKE 1 TABLET BY MOUTH AT NIGHT 100 tablet 2 06/30/20 23 025 Discontinued Active Problems Problem Noted Date Diagnosed Date Atrial fibrillation 02/05/2023 Assessment & Plan (02/05/2023 6:00 AM POLE FRAMER): Known hx of p. A fib on Eliquis as outpatient. 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 - Continue aspirin and statin. - Hold Eliquis for now. D/w team timing of restart. - Telemetry with OU monitoring. - Continue home metoprolol of BP and HR allows following carotid endarterectomy. HTN (hypertension) 02/05/2023 Assessment & Plan (02/05/2023 6:01 AM POLE FRAMER): Home regimen: amlodipine 10mg daily, chlorthalidone 25mg daily, lisinopril 40mg daily, metoprolol 25mg BID. - Resume home regimen as able following OR. Start with metoprolol. Diabetes mellitus 02/05/2023 Assessment & Plan (02/05/2023 6:02 AM POLE FRAMER): On metformin as outpatient. - Hold metformin for now. Start SSI and monitor glucose checks. Plan to restart metformin at discharge. Carotid artery calcification, left 02/05/2023 Stenosis of left carotid artery 11/08/2022 Overview (11/08/2022): Added automatically from request for surgery [id number] Assessment & Plan (02/05/2023 5:59 AM POLE FRAMER): Found on carotid duplex following finding of [...] on file Legal Sex Female 10:27 AM POLE FRAMER Gender Identity Not on file Sexual Orientation [...] on file Medical Devices Implanted Type Area Inspector Motor Vehicles Device Identifier Shelf Expiration Date Model / Serial / Lot Endocrine Technology Vascu-Guard 8x.8cm Peripheral Patch Vascular Bovine Pericardium Vg-0108n - S00 - [id number] Implanted:Qty: 1 on 02/05/2023 by James Shaikh MD at [facility] Other - see comments Left: Carotid [employer] Technology [id number] 02/06/2026 VG-0108N / 00 / [id number] Description:Bovine pericardi al patch Procedures Procedure Name Priority Date/Time Associated Diagnosis Comments US CAROTIDS DUPLEX BILATERAL Schedule Routine, Read Routine (OP Routine) 05/16/2025 2:48 PM CDT Left carotid stenosis POCT LIPID PANEL Routine 04/20/2025 9:49 AM CDT Lipid screening BASIC METABOLIC PANEL Routine 04/30/2024 Hypertension associated with diabetes (HCC) POCT HEMOGLOBIN A1C Routine 11/28/2022 1:39 PM POLE FRAMER from Last 3 Months or Most Recently Relevant to Health Maintenance Results * US Carotids Duplex Bilateral (05/16/2025 2:48 PM CDT) Anatomical Region Laterality Modality Vascular Bilateral Ultrasound 05/16/2025 2:22 PM CDT Narrative 05/16/2025 4:47 PM CDT [facility] - Department of Vascular Surgery, Vascular Laboratory [address] [place] [address] Carotid Duplex Ultrasound Report Patient Name: LISA REED : 1955 (69y 7m) Study Date: 05/16/2025 2:22:45 PM Gender: F Tech: Location: [facility] Ref Provider: JAMES SHAIKH Quality: Adequate [...] LT VERT PSV 81 cm/sec FINDINGS: Performing Raw Material Handler: Mile Blanca RVT. Rt Common Carotid Artery: [...] Procedure Note James Shaikh MD - 05/16/2025 [facility] - Department of Vascular Surgery,Vascular Laboratory [address] [place] [address] Carotid Duplex Ultrasound Report Patient Name: LISA REED : 1955 (69y 7m) Study Date: 05/16/2025 2:22:45 PM Gender: F Tech: Location: [facility] Ref Provider: JAMES SHAIKH Quality: Adequate [...] LT VERT PSV 81 cm/sec FINDINGS: Performing Raw Material Handler: Mile Blanca RVT. Rt Common Carotid Artery: [...] (ABNORMAL) POCT hemoglobin A1c (11/28/2022 1:39 PM POLE FRAMER) Hgb A1C, POC 6.2(H) 4.0 - 5.6 % [facility] Est Average Gluc POC 131 mg/dL [facility] Comment: The ADA recommends reporting an estimated Average Glucose (eAG) with all Hemoglobin A1c results using the equation derived from a study of 507 normal and diabetic adults. Minority populations were underrepresented and children were not included. (Diabetes Care 31:5877-5837, 2008). The eAG is not equivalent to a fasting glucose. Blood 11/28/2022 1:39 PM POLE FRAMER 11/28/2022 1:39 PM POLE FRAMER James Shaikh MD POINT OF CARE TEST ORDERABLE S Final Result [facility] [place] [address] from Last 3 Months or Most Recently Relevant to Health Maintenance Insurance [facility] MEDICARE ADVANTAGE Member Subscriber Plan / Payer ( fective 2022-Present) Name:Lisa Reed Relation to Subscriber:Self Name:Lisa Reed Payer ID:[id number] (NAIC) Type:[facility] Address: [place] [id number] Member Subscriber Plan / Payer ( fective 2022-Present) Name:Mansoor Reedramón Hendricks Relation to Subscriber:Self Name:Lisa Reed Payer ID:[id number] (NAIC) Type:[facility] Address: [place] [id number] Advance Directives For more information, please contact: [phone] * Full Code (Latest Code Status on File) Date Activated Date Inactivated Comments 02/05/2023 4:40 PM 02/06/2023 7:54 PM Care Teams Aggregate Conveyor Operator Relationship Specialty Start Date End Date Cherise Joseph DO [address] [place] [address] [address] [place] [address] PCP - General Family Medicine 04/20/25 Alicia Larsen MD [address] [place] [address] [address] [place] [address] Referring Physician Internal Medicine 04/22/25
--- OUTSIDE RECORDS SUMMARY | 2025-05-19 12:19 | XMS_ITS | Clinical Summary ---
Author Organization [facility] Address [address] [place] [address] Care Team Providers Care Brush Washer Name Role Phone Lenard Fan MD Primary Care Provider Social History Tobacco Use Types Packs/Day Years Used Date Smoking Tobacco: Never Assessed Comments Unknown Sex and Gender Information Value Date Recorded Sex Assigned at Not on file Legal Sex Female 5:45 PM TEMPORARY DATA ENTRY CLERK Gender Identity Not on file Sexual Orientation [...] patient's age to complete this topic [place] [address] [place] [address] Care Teams Brush Washer Relationship Specialty Start Date End Date Lenard Fan MD [address] [place] [phone] PCP - General FAMILY PRACTICE 08/25/19
--- OUTSIDE RECORDS SUMMARY | 2025-05-19 12:19 | XMS_ITS | Encounter Summary ---
Author Organization [facility] Address [address] [place] [address] Care Team Providers Care Concrete Form Setter And Finisher Name Role Phone Lenard Fan MD Primary Care Provider [phone] Encounter Details Date Type Department Care Team (Late st Contact Info) Description 05/08/2019 Abstract [facility] CONVERSION [address] [place] [address] , Generic Conversion, Social History Tobacco Use Types Packs/Day Years Used Date Smoking Tobacco: Never Assessed Comments Unknown Sex and Gender Information Value Date Recorded Sex Assigned at Not on file Legal Sex Female 5:45 PM FIREARMS SALES ASSOCIATE Gender Identity Not on file Sexual Orientation Not on file documented as of this encounter Plan of Treatment Not on file documented as of this encounter Visit Diagnoses Not on filedocumented in this encounter Care Teams Concrete Form Setter And Finisher Relationship Specialty Start Date End Date Lenard Fan MD [address] [place] [phone] PCP - General FAMILY PRACTICE 08/25/19 documented as of this encounter
--- OUTSIDE RECORDS SUMMARY | 2025-05-19 12:19 | XMS_ITS | Clinical Summary ---
Author Organization [facility] [address] Address [address] [place] [address] Care Team Providers Care Pipe Stem Sawyer Name Role Phone Cherise Joseph DO Primary Care Provider [phone] Alicia Larsen MD Unavailable [phone] Allergies Active Allergy Reactions Criticality Noted Date [...] 02/05/2023 Assessment & Plan (02/05/2023 6:00 AM EMBEDDED SOFTWARE ENGINEER): Known hx of p. A fib on Eliquis as outpatient. She was bridged with Lovenox at the direction of her acting professor. - Continue aspirin and statin. - Hold Eliquis for now. D/w team timing of restart. - Telemetry with OU monitoring. - Continue home metoprolol of BP and HR allows following carotid endarterectomy. HTN (hypertension) 02/05/2023 Assessment & Plan (02/05/2023 6:01 AM EMBEDDED SOFTWARE ENGINEER): Home regimen: amlodipine 10mg daily, chlorthalidone 25mg daily, lisinopril 40mg daily, metoprolol 25mg BID. - Resume home regimen as able following OR. Start with metoprolol. Diabetes mellitus 02/05/2023 Assessment & Plan (02/05/2023 6:02 AM EMBEDDED SOFTWARE ENGINEER): On metformin as outpatient. - Hold metformin for now. Start SSI and monitor glucose checks. Plan to restart metformin at discharge. Carotid artery calcification, left 02/05/2023 Stenosis of left carotid artery 11/08/2022 Overview (11/08/2022): Added automatically from request for surgery [id number] Assessment & Plan (02/05/2023 5:59 AM EMBEDDED SOFTWARE ENGINEER): Found on carotid duplex following finding of [...] Type Department Care Team Description 05/18/2025 Telephone [facility] Cardiology [address] [place] [address] Dhruv Shahid MD 05/16/2025 3:15 PM CDT Office Visit [facility] Surgery [address] [place] [address] Medical Office Building [address], [place] [address] James Shaikh MD Left carotid stenosis 05/16/2025 2:30 PM CDT Ancillary Procedure [facility] Vascular Lab [address] [place] [address] Office Building [address], [place] [address] Left carotid stenosis 05/16/2025 Documentation [facility] Surgery [address] [place] [address] Medical Office Building [address], [place] [phone] Nanette Mon RMA 04/20/2025 9:45 AM CDT Office Visit [facility] Medical [facility] Cardiology [address] [place] [address] Dhruv Shahid MD Paroxysmal atrial fibrillation (HCC) (Primary Dx); Chronic anticoagulation; Hypertension associated with diabetes (HCC); S/P carotid endarterectomy; ELIZABETH on CPAP; Morbid obesity with BMI of 40.0-44.9, adult (HCC); Lipid screening; Engages in vaping; Tobacco abuse 04/20/2025 Telephone [facility] Cardiology [address] [place] [address] Dhruv Shahid MD 04/18/2025 Telephone [facility] Cardiology [address] [place] [phone] Dhruv Shahid MD from Last 3 Months [...] on file Legal Sex Female 10:27 AM EMBEDDED SOFTWARE ENGINEER Gender Identity Not on file Sexual Orientation [...] Risk Assessment 02/07/2024 02/06/2023 eGFR 04/30/2025 04/30/2024, 0307/2023, 01/27/2023, Additional history exists Influenza Vaccine (Season Ended) 2025 09/27/2020, 04/06/2018, 01/29/2018, Additional history exists Lipid Panel 04/20/2026 04/20/2025, 03/31, 02/05/2023, Additional history exists Medical Devices Implanted Type Area Disc Pad Knockout Worker Device Identifier Shelf Expiration Date Model / Serial / Lot [employer] Vascu-Guard 8x.8cm Peripheral Patch Vascular Bovine Pericardium [id number] - S00 - [id number] Implanted:Qty: 1 on 02/05/2023 by James Shaikh MD at [facility] Other - see comments Left: Carotid [employer] [id number] 02/06/2026 [id number]-[id number] / 00 / [id number] Description:Bovine pericardi al patch Procedures Procedure Name Priority Date/Time Associated Diagnosis Comments US CAROTIDS DUPLEX BILATERAL Schedule Routine, Read Routine (OP Routine) 05/16/2025 2:48 PM CDT Left carotid stenosis POCT LIPID PANEL Routine 04/20/2025 9:49 AM CDT Lipid screening BASIC METABOLIC PANEL Routine 04/30/2024 Hypertension associated with diabetes (HCC) POCT HEMOGLOBIN A1C Routine 11/28/2022 1:39 PM EMBEDDED SOFTWARE ENGINEER from Last 3 Months or Most Recently Relevant to Health Maintenance Results * US Carotids Duplex Bilateral (05/16/2025 2:48 PM CDT) Anatomical Region Laterality Modality Vascular Bilateral Ultrasound 05/16/2025 2:22 PM CDT Narrative 05/16/2025 4:47 PM CDT [facility] - Department of Vascular Surgery, Vascular Laboratory [address] [place] [address] Carotid Duplex Ultrasound Report Patient Name: LISA REED : 1955 (69y 7m) Study Date: 05/16/2025 2:22:45 PM Gender: F Tech: Location: [facility] Provider: JAMES SHAIKH Quality: Adequate Order [...] LT VERT PSV 81 cm/sec FINDINGS: Performing Woodworking Machine Operator: TOMÁS DollT. Rt Common Carotid Artery: The [...] Procedure Note James Shaikh MD - 05/16/2025 [facility] - Department of Vascular Surgery,Vascular Laboratory [address] [place] [address] Carotid Duplex Ultrasound Report Patient Name: LISA REED : 1955 (69y 7m) Study Date: 05/16/2025 2:22:45 PM Gender: F Tech: Location: [facility] Ref Provider: JAMES SHAIKH Quality: Adequate Order [...] LT VERT PSV 81 cm/sec FINDINGS: Performing Woodworking Machine Operator: Mile Blanca RVT. Rt Common Carotid Artery: [...] 05/16/2025 4:22:40 PM CDT James Shaikh MD IMG US PROCEDURES Final Resu lt * (ABNORMAL) [...] (ABNORMAL) POCT hemoglobin A1c (11/28/2022 1:39 PM EMBEDDED SOFTWARE ENGINEER) Hgb A1C, POC 6.2(H) 4.0 - 5.6 % [facility] Est Average Gluc POC 131 mg/dL [facility] Comment: The ADA recommends reporting an estimated Average Glucose (eAG) with all Hemoglobin A1c results using the equation derived from a study of 507 normal and diabetic adults. Minority populations were underrepresented and children were not included. (Diabetes Care 31:9644-9270, 2008). The eAG is not equivalent to a fasting glucose. Blood 11/28/2022 1:39 PM EMBEDDED SOFTWARE ENGINEER 11/28/2022 1:39 PM EMBEDDED SOFTWARE ENGINEER James Shaikh MD POINT OF CARE TEST ORDERABLE S Final Result Performing Organization Address City/[facility]/ZIP Co de Phone Number [facility] [place] [address] from Last 3 Months or Most Recently Relevant to Health Maintenance Insurance [facility] MEDICARE ADVANTAGE [place] [address] [facility] MEDICARE ADVANTAGE [employer] MEDICARE ADVANTAGE Advance Directives For more information, please contact: [phone] * Full Code (Latest Code Status on File) Date Activated Date Inactivated Comments 02/05/2023 4:40 PM 02/06/2023 7:54 PM Care Teams Pipe Stem Sawyer Relationship Specialty Start Date End Date Cherise Joseph DO [address] [place] [address] [address] [place] [address] PCP - General Family Medicine 04/20/25 Alicia Larsen MD [address] [place] [address] [address] [place] [address] Referring Physician Internal Medicine 04/22/25
--- OUTSIDE RECORDS SUMMARY | 2025-05-19 12:19 | XMS_ITS | Patient Health Record ---
Author Organization [facility] Address [address] [place], [place] [address] Care Team Providers Care Mechanic Senior Name Role Phone Lenard Fan Primary Care Provider Len Urbano [phone] ALLERGIES Allergen (clinical drug ingredient) Drug/Non Drug [...] Code Notes Problem Diabetes (E11.9) Active confirmed Type II diabetes mellitus without complication (202681136) Problem Hypertension (I10) Active confirmed Hypertension (95965555) Problem Essential (primary) hypertension (I10) Active confirmed 28858468 Problem Primary osteoarthritis of left hip (M16.12) Active confirmed 150965797 Problem H/O total hip arthroplasty (Z96.649) Active confirmed 271701275304 Problem Primary osteoarthritis of right hip (M16.11) Active confirmed [id number] Problem Left hip pain (M25.552) Active confirmed Arthralgia of t he pelvic region and thigh (457190985) PLAN OF TREATMENT Pending Test Test Name Order Date X ray : Hip, left, 2 04/16/2019 X ray : Hip, left, 2 11/04/2019 X ray : Hip, left, 2 06/26/2023 X ray : Hip, left, 2 01/06/2020 X ray : Hip, left, 2 10/05/2020 X ray : Hip, left, 2 10/04/2021 X ray : Hip, right, 2 04/18/2022 Ultrasound : Hip, Right 04/18/2022 Insurance Providers Payer Name Payer Address Payer Phone Subscriber Number Group Number Insured Name Patient Relationship to Insured Coverage Start Date Coverage End Date [facility] [address] [address] [place] [address] [id number] Lisa Reed Self - patient is the [...]
--- OUTSIDE RECORDS SUMMARY | 2025-05-19 12:19 | XMS_ITS | Encounter Summary ---
Author Organization [facility] Healthcare Address [address] [place] [address] Care Team Providers Care Neurological Surgeon Name Role Phone Cherise Joseph DO Primary Care Provider [phone] Alicia Larsen MD Unavailable [phone] Encounter Details Date Type Department Care Team (Late st Contact Info) Description 05/18/2025 Telephone [facility] Medical Group Cardiology [address] [place] [address] Dhruv Shahid MD [address] [facility] [place] [address] [facility] [place] [address] [place] [address] Social History Tobacco Use Types Packs/Day Years [...] on file Legal Sex Female 10:27 AM WASTEWATER DESIGN ENGINEER Gender Identity Not on file Sexual Orientation Not on file documented as of this encounter Miscellaneous Notes * Telephone Encounter - Jennifer Lindquist RN - 05/18/2025 4:03 PM CDT Placed new order for lipid panel and faxing to . Pt said she would go and have drawn tomorrow. * Telephone Encounter - Demetrice Beach - 05/18/2025 2:47 PM CDT Pt called to inform us that when she went in to get her blood work done they told her that they can't do it because the insurance is not going to cover it because the diagnosis code is incorrect theytold her that it is not medically necessary so it would cost her around $200 please advise pt was hoping to get it done tomorrow because she is going to be going out of town thank you Contact: documented in this encounter Plan of Treatment Scheduled Orders Name Type Priority Associated Diagnoses Orde r Schedule Lipid panel Lab Routine Hyperlipidemia, unspecified hyperlipidemia type Expected: 05/21/2025, Expires: 05/18/2026 documented as of this encounter Visit Diagnoses Diagnosis Hyperlipidemia, unspecified hyperlipidemia type- Primary documented in this encounter Care Teams Neurological Surgeon Relationship Specialty Start Date End Date Cherise Joseph DO [address] [place] [address] [address] [place] [address] PCP - General Family Medicine 04/20/25 Alicia Larsen MD [address] [place] [address] [address] [place], [place] [id number] Referring Physician Internal Medicine 04/22/25 documented as of this encounter
[2025-05-19 12:28] LABS: Cholesterol 100 mg/dL (0-200); HDL Direct 47 mg/dL; Triglycerides 150 mg/dL (<150)
[2025-05-19 12:39] LABS: LDL Cholesterol Direct < 30 mg/dL
== END 2025-05-19 11:28 | disposition home or self-care (01) ==
PROVIDERS: PCP Family Medicine; Visit Provider Internal Medicine Cardiovascular Disease
DX: E78.5 Hyperlipidemia, unspecified (principal)
CPT/HCPCS: 36415; 80061

== ENCOUNTER 2025-08-09 12:34 | Outpatient (CLI) | payer MEDICARE, SELFPAY ==
--- NOTE | ~2025-08-09 | MM_ITS ---
EXAMINATION: MM screening timothy BI w valentina HISTORY: Screening TECHNIQUE: Craniocaudal and mediolateral oblique 3-D tomosynthesis images were obtained and synthetic 2-D images were generated. CAD analysis was submitted and interpreted. COMPARISON: Comparison to multiple prior studies sequentially, with oldest reviewed study dated 01/24/2020. BREAST PARENCHYMAL COMPOSITION: There are scattered areas of fibroglandular density. FINDINGS: There is no evidence of suspicious mass, calcification, or architectural distortion to suggest malignancy in either breast. Scattered benign-appearing calcifications are present. IMPRESSION: 1. No mammographic evidence of malignancy. 2. Recommend routine screening mammography in one year. BI-RADS Category 2: Benign finding(s). Reviewed, dictated and finalized at location B.
--- NOTE | ~2025-08-09 | DEXA_ITS ---
Bone Density Report Name: LUZ MARIA NOWAK Age: 69 Sex: Female Ethnicity: White Date of : 1955 Indication: postmenopausal; screening for osteoporosis; Referring Provider: Jonnie Peck Study: Bone densitometry was performed. Exam Date: August 09, 2025 Accession number: [id number] Bone Density: Region BMD T-score Z-score Classification AP Spine(L1-L4) 0.947 -0.9 1.2 Normal Femoral Neck (Right) 0.668 -1.6 0.2 Osteopenia Total Hip (Right) 0.772 -1.4 0.2 Osteopenia World Health Organization criteria for BMD impression classify patients as: Normal (T-score at or above -1.0), Osteopenia (T-score between -1.0 and -2.5), or Osteoporosis (T-score at or below -2.5). 10-year Fracture Risk(1): Major Osteoporotic Fracture 9.2% Hip Fracture 1.4% Reported Risk Factors: [place] (), Neck BMD=0.668, BMI=40.2 (1) FRAX(R) Version 3.08. Fracture probability calculated for an untreated patient. Fracture probability may be lower if the patient has received treatment. Clinical Information Provided by Patient: Has used the following medications: Vitamin D, MULTI Patient maximum height was 67 Menopause Age: 37 No regular weight bearing exercise Does not regularly consume dairy products Drinks caffeinated beverages Onset of menses at age 14 Number of children 2 Impression: The patient has low bone mass, based on the Right Femoral Neck T-score. The patient has an estimated ten-year risk of hip fracture of 1.4% and an estimated ten-year risk of major fracture of 9.2%, based on the WHO FRAX algorithm. Discussion: BONE DENSITY IS LOW AT ONE OR MORE SKELETAL SITES. This patient's lowest T-score is low at one or more skeletal sites. It meets the World Health Organization's (WHO) criteria for ?low bone mass? (T-score between -1.0 and -2.5). The patient's 10-year risk of fracture as calculated by FRAX is less than the threshold where pharmacological therapy is recommended by the National Osteoporosis Foundation (NOF). However, all treatment decisions require clinical judgment and consideration of individual patient factors, including patient preferences, comorbidities, previous drug use, risk factors not captured in the FRAX model (e.g., frailty, falls, vitamin D deficiency, increased bone turnover, interval significant decline in bone density) and possible under or overestimation of fracture risk by FRAX. The patient should follow a healthful lifestyle (good nutrition with adequate calcium and vitamin D, and appropriate weight-bearing exercise). Follow-Up: Consider repeating this study in 2 to 3 years to reassess this patient's status, or sooner if there is some new clinical indication. Reported by: ALBA on 08/09/2025 12:53:00 PM. Reviewed, dictated and finalized at location A.
--- OUTSIDE RECORDS SUMMARY | 2025-08-09 13:53 | XMS_ITS | Clinical Summary ---
Author Organization [facility] Address [address] [place] [address] Care Team Providers Care Customer Experience Analyst Name Role Phone Lenard Fan MD Primary Care Provider [phone] Social History Tobacco Use Types Packs/Day Years Used Date Smoking Tobacco: Never Assessed Comments Unknown Sex and Gender Information Value Date Recorded Sex Assigned at Not on file Legal Sex Female 5:45 PM PAVER LAYER Gender Identity Not on file Sexual Orientation [...] COVID-19 Vaccine ( - 2023-2 5 season) 2025 RSV Immunization or 60+ Years (1 - 1-dose 75+ series) 2029 Meningococcal B Vaccine Aged Out No l onger eligible based on patient's age to complete this topic Meningococcal Vaccine Aged Out No cornel lisa eligible based on patient's age to complete this topic RSV Immunizations Under 20 Months Aged Out No longer eligible based on patient's age to complete this topic [place] [address] [place] [address] Care Teams Customer Experience Analyst Relationship Specialty Start Date End Date Lenard Fan MD [address] [place] [phone] PCP - General FAMILY PRACTICE 08/25/19
--- OUTSIDE RECORDS SUMMARY | 2025-08-09 13:54 | XMS_ITS | Clinical Summary ---
Author Organization [facility] [address] Address [address] [place] [address] Care Team Providers Care Fender Repairer Name Role Phone Cherise Joseph DO Primary Care Provider [phone] Alicia Larsen MD Unavailable [phone] Allergies Active Allergy Reactions Criticality Noted Date Comments Hydrocodone Nausea & Vomiting Low 11/28/2022 Hydrocodone-Acetaminophen Nausea & Vomiting,Unknown Low 02/16/2020 Medications lisinopriL (PRINIVIL,ZESTRI L) 40 mg tabletIndication s:hypertension Take 1 tablet (40 mg total) by mouth every morning 02/02/20 20 Active metFORMIN XR (GLUCOPHAGE XR) 750 mg 24 hr tabletIndication s:type 2 diabetes mellitus Take 1 tablet (750 mg total) by mouth 2 (two) times a day 02/02/20 20 Active cholecalciferol (VITAMIN D-3) 25 mcg (1,000 unit) tabletIndication s:Vitamin D Deficiency Take 1 tablet (1,000 Units total) by mouth every morning Active ascorbic acid (VITAMIN C) 1,000 mg tabletIndication s:Vitamin C Deficiency Take 1 tablet (1,000 mg total) by mouth nightly Active multivitamin capsuleIndicatio ns:Vitamin Deficiency Prevention Take 1 capsule by mouth every morning Active amLODIPine (NORVASC) 10 mg tabletIndication s:hypertension Take 1 tablet (10 mg total) by mouth every morning 12/26/19 21 Active calcipotriene (DOVONOX) 0.005 % creamIndications :Plaque Psoriasis Apply 1 application topically 2 (two) times a day 01/31/20 21 Active aspirin 81 mg enteric coated tablet Take 1 tablet (81 mg total) by mouth daily 30 tablet 11 10/16/20 22 Active acetaminophen (TYLENOL) 500 mg tabletIndication s:Pain Take 2 tablets (1,000 mg total) by mouth every 6 (six) hours as needed for pain Active Eliquis 5 mg tabletIndication s:atrial fibrillation Take 1 tablet (5 mg total) by mouth 2 (two) times a day Please resume your home dose Eliquis on Friday02/10/2023. 30 tablet 3 04/18/20 25 Active rosuvastatin (CRESTOR) 40 mg tablet Take 1 tablet (40 mg total) by mouth nightly 90 tablet 6 04/20/20 25 Active varenicline tartrate (CHANTIX) 1 mg tabletIndication s:Smoking Cessation Take 0.5 tablets (0.5 mg total) by mouth 2 (two) times a day for 7 days, THEN 1 tablet (1 mg total) 2 (two) times a day for 9 days. Take with full glass of water. 60 tablet 3 04/20/20 25 Active carvediloL (COREG) 6.25 mg tablet Take 1 tablet (6.25 mg total) by mouth 2 (two) times a day with meals 60 tablet 07/13/20 25 026 Active spironolactone (ALDACTONE) 25 mg tablet Take 1 tablet (25 mg total) by mouth daily 30 tablet 07/13/20 25 026 Active spironolactone (ALDACTONE) 25 mg tablet Take 1 tablet (25 mg total) by mouth daily 30 tablet 04/14/20 24 025 Discontin ued(Reord er) carvediloL (COREG) 6.25 mg tablet Take 1 tablet (6.25 mg total) by mouth 2 (two) times a day with meals 60 tablet 04/14/20 24 025 Discontin ued(Reord er) Active Problems Problem Noted Date Diagnosed Date Atrial fibrillation 02/05/2023 Assessment & Plan (02/05/2023 6:00 AM ELECTRICAL MAINTENANCE WORKER): Known hx of p. A fib on Eliquis as outpatient. She was bridged with Lovenox at the direction of her slicing machine operator. - Continue aspirin and statin. - Hold Eliquis for now. D/w team timing of restart. - Telemetry with OU monitoring. - Continue home metoprolol of BP and HR allows following carotid endarterectomy. HTN (hypertension) 02/05/2023 Assessment & Plan (02/05/2023 6:01 AM ELECTRICAL MAINTENANCE WORKER): Home regimen: amlodipine 10mg daily, chlorthalidone 25mg daily, lisinopril 40mg daily, metoprolol 25mg BID. - Resume home regimen as able following OR. Start with metoprolol. Diabetes mellitus 02/05/2023 Assessment & Plan (02/05/2023 6:02 AM ELECTRICAL MAINTENANCE WORKER): On metformin as outpatient. - Hold metformin for now. Start SSI and monitor glucose checks. Plan to restart metformin at discharge. Carotid artery calcification, left 02/05/2023 Stenosis of left carotid artery 11/08/2022 Overview (11/08/2022): Added automatically from request for surgery [id number] Assessment & Plan (02/05/2023 5:59 AM ELECTRICAL MAINTENANCE WORKER): Found on carotid duplex following finding of carotid bruit. - OR 02/05/2023 for left carotid endarterectomy. - Continue aspirin and statin. - BP goals 100-150. - CLD. - OU status overnight. - DC arterial line and Mccray in AM. - Q2h NV checks. Morbid (severe) obesity due to excess calories 1 12/16/2021 Other thrombophilia 10/16/2022 Encounters Date Type Department Care Team Description 07/15/2025 Telephone [facility] Cardiology [address] [place] [address] Dhruv Shahid MD 07/13/2025 Telephone [facility] Cardiology [address] [place] [phone] Dhruv Shahid MD 05/18/2025 Telephone [facility] Cardiology [address] [place] [phone] Dhruv Shahid MD 05/16/2025 3:15 PM CDT Office Visit [facility] Medicine Surgery [address] [place] [address] Office [address] [place] [phone] James Shaikh MD Left carotid stenosis 05/16/2025 2:30 PM CDT Ancillary Procedure [facility] Vascular Lab [address] [place] [address] [address] [place] [phone] Left carotid stenosis 05/16/2025 Documentation [facility] Medicine Surgery [address] [place] [address] [address] [place] [phone] Nanette Mon RMA from Last 3 Months Surgical History Surgery [...] on file Legal Sex Female 10:27 AM ELECTRICAL MAINTENANCE WORKER Gender Identity Not on file Sexual Orientation [...] 07/2023, 01/27/2023, Additional history exists Influenza Vaccine (#1) 2025 , 04/06/2018, 01/29/2018, Additional history exists Lipid Panel 05/19/2026 05/19/2025, 05/2 12/2024, 04/14/2024, Additional history exists Medical Devices Implanted Type Area Proposal Editor Device Identifier Shelf Expiration Date Model / Serial / Lot [employer] Vascu-Guard 8x.8cm Peripheral Patch Vascular Bovine Pericardium Vg-[id number] - S00 - [id number] Implanted:Qty: 1 on 02/05/2023 by James Shaikh MD at [facility] Other - see comments Left: Carotid [employer] [id number] 02/06/2026 VG-0108N / 00 / [id number] Description:Bovine pericardi al patch Procedures Procedure Name Priority Date/Time Associated Diagnosis Comments LIPID PANEL Routine 05/19/2025 Hyperlipidemia, unspecified hyperlipidemia type US CAROTIDS DUPLEX BILATERAL Schedule Routine, Read Routine (OP Routine) 05/16/2025 2:48 PM CDT Left carotid stenosis BASIC METABOLIC PANEL Routine 04/30/2024 Hypertension associated with diabetes (HCC) POCT HEMOGLOBIN A1C Routine 11/28/2022 1:39 PM ELECTRICAL MAINTENANCE WORKER from Last 3 Months or Most Recently Relevant to Health Maintenance Results * (ABNORMAL) Lipid panel (05/19/2025) SCRIBED Cholesterol, Total 100 30 - 199 mg/dL EXTERNAL LAB SCRIBED Triglycerides 150(A) <=149 mg/dL EXTERNAL LAB SCRIBED HDL 47 >=40 mg/dL EXTERNAL LAB SCRIBED LDL 29 <=129 mg/dL EXTERNAL LAB Scribed Non-HDL Cholesterol EXTERNAL LAB Comment:not completed at lab SCRIBED Total Cholesterol/HDL Ratio EXTERNAL LAB Comment:not completed at lab Blood 05/19/2025 us Dhruv Shahid MD LAB BLOOD ORDERABLES Final Resul t EXTERNAL LAB * US Carotids Duplex Bilateral (05/16/2025 2:48 PM CDT) Anatomical Region Laterality Modality Vascular Bilateral Ultrasound 05/16/2025 2:22 PM CDT Narrative 05/16/2025 4:47 PM CDT [facility] - Department of Vascular Surgery, Vascular Laboratory [address] [place] [address] Carotid Duplex Ultrasound Report Patient Name: LISA REED : 1955 (69y 7m) Study Date: 05/16/2025 2:22:45 PM Gender: F Tech: Location: [facility] Provider: JAMES SHAIKH Quality: Adequate Order [...] LT VERT PSV 81 cm/sec FINDINGS: Performing Medical Delivery Technician: Mile Blanca RVT. Rt Common Carotid Artery: [...] Procedure Note James Shaikh MD - 05/16/2025 [facility] - Department of Vascular Surgery,Vascular Laboratory [address] [place] [address] Carotid Duplex Ultrasound Report Patient Name: LISA REED : 1955 (69y 7m) Study Date: 05/16/2025 2:22:45 PM Gender: F Tech: Location: [facility] Ref Provider: JAMES SHAIKH Quality: Adequate Order [...] LT VERT PSV 81 cm/sec FINDINGS: Performing Medical Delivery Technician: Mile Blanca RVT. Rt Common Carotid Artery: [...] US PROCEDURES Final Resu lt * (ABNORMAL) Basic metabolic panel (04/30/2024) SCRIBED [...] 8.6 - 10.4 mg/dl [facility] SCRIBED eGFR N/A N/A [facility] SCRIBED eGFR 63 > or = 60 [facility] Blood 04/30/2024 us Dhruv Shahid MD LAB BLOOD ORDERABLES Final Resul t [facility] * (ABNORMAL) POCT hemoglobin A1c (11/28/2022 1:39 PM ELECTRICAL MAINTENANCE WORKER) Hgb A1C, POC 6.2(H) 4.0 - 5.6 % [facility] Est Average Gluc POC 131 mg/dL [facility] Comment: The ADA recommends reporting an estimated Average Glucose (eAG) with all Hemoglobin A1c results using the equation derived from a study of 507 normal and diabetic adults. Minority populations were underrepresented and children were not included. (Diabetes Care 31:9479-7852, 2008). The eAG is not equivalent to a fasting glucose. Blood 11/28/2022 1:39 PM ELECTRICAL MAINTENANCE WORKER 11/28/2022 1:39 PM ELECTRICAL MAINTENANCE WORKER James Shaikh MD POINT OF CARE TEST ORDERABLE S Final Result Performing Organization Address City/[facility] Co de Phone Number [facility] [place] [address] from Last 3 Months or Most Recently Relevant to Health Maintenance Insurance [employer] MEDICARE ADVANTAGE [employer] MEDICARE ADVANTAGE [employer] MEDICARE ADVANTAGE Advance Directives For more information, please contact: [phone] * Full Code (Latest Code Status on File) Date Activated Date Inactivated Comments 02/05/2023 4:40 PM 02/06/2023 7:54 PM Care Teams Fender Repairer Relationship Specialty Start Date End Date Cherise Joseph DO [address] [place] [address] [address] [place] [address] PCP - General Family Medicine 04/20/25 Alicia Larsen MD [address] [place] [address] [address] [place] [address] Referring Physician Internal Medicine 04/22/25
--- OUTSIDE RECORDS SUMMARY | 2025-08-09 13:54 | XMS_ITS | Encounter Summary ---
Author Organization [facility] Address [address] [place] [id number] Care Team Providers Care Metal Mockup Maker Name Role Phone Lenard Fan MD Primary Care Provider [phone] Encounter Details Date Type Department Care Team (Late st Contact Info) Description 05/08/2019 Abstract SFL CONVERSION [address] [place] [address] , Generic Conversion, Social History Tobacco Use Types Packs/Day Years Used Date Smoking Tobacco: Never Assessed Comments Unknown Sex and Gender Information Value Date Recorded Sex Assigned at Not on file Legal Sex Female 5:45 PM CAFE COOK Gender Identity Not on file Sexual Orientation Not on file documented as of this encounter Plan of Treatment Not on file documented as of this encounter Visit Diagnoses Not on filedocumented in this encounter Care Teams Metal Mockup Maker Relationship Specialty Start Date End Date Lenard Fan MD [address] [place] [id number] PCP - General FAMILY PRACTICE 08/25/19 documented as of this encounter
--- OUTSIDE RECORDS SUMMARY | 2025-08-09 13:54 | XMS_ITS | Encounter Summary ---
Author Organization [facility] Address [address] [place] [address] Care Team Providers Care Director Social Name Role Phone Cherise Joseph DO Primary Care Provider [phone] Alicia Lasren MD Unavailable [phone] Encounter Details Date Type Department Care Team (Late st Contact Info) Description 07/15/[address] 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 * Telephone Encounter - Meron Prabhakar - 07/18/2025 10:33 AM CDT Images from the original note were not included. [facility] states that they received the faxed below but the actual letter is notbeing shown/attached. Requesting we re-fax the letter. Please advise. Thank you. *This is the fax they keep receiving from our office. * Telephone Encounter - Valencia Espitia RN - 07/18/2025 8:11 AM CDT Letter faxed as requested. Pt aware. * Telephone Encounter - Valencia Espitia RN - 07/15/2025 3:15 PM CDT Will forward to [facility]. Ok to provide letter? 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 Letter needs to state she is under Dr. 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 Please send to Dr. Tres Diggs. Thank you. Contact: documented in this encounter Plan of Treatment Not on file documented as of this encounter Visit Diagnoses Not on filedocumented in this encounter Care Teams Director Social Relationship Specialty Start Date End Date Cherise Joseph DO [address] [place] [address] [address] [place] [address] PCP - General Family Medicine 04/20/25 Alicia Larsen MD [address] [place] [address] [address] [place] [address] Referring Physician Internal Medicine 04/22/25 documented as of this encounter
== END 2025-08-09 12:35 | disposition home or self-care (01) ==
LOC: CHSIMG 12:35
PROVIDERS: PCP Emergency Medicine; Visit Provider Emergency Medicine
DX: Z12.31 Encounter for screening mammogram for malignant neoplasm of breast (principal); Z78.0 Asymptomatic menopausal state; M85.89 Other specified disorders of bone density and structure, multiple sites
CPT/HCPCS: 77063; 77067; 77080

== ENCOUNTER 2025-10-08 19:48 | Outpatient (CLI) | payer MEDICARE, SELFPAY ==
--- NOTE | 2025-10-31 11:00 | WPDSLEEPSTUD ---
Sleep Study Date of Study: 10/08/25 Ordering Provider: Jonnie Peck MD Interpreting Physician: Eneida Mcpherson MD Sleep Study Type: Split Polysomnogram Height: 1.7 m Weight: 115.212 kg Body Mass Index: 39.7 Neck Circumference (inches): 15.75 [place]: 3 Reason for Sleep Study Known obstructive sleep apnea, has CPAP with a fullface mask Sleep History Lisa Reed is a 70-year-old woman with known obstructive sleep apnea. She has used CPAP with fullface mask. However her machine is over 15 years old. She is required to retest to get new equipment. Her last test was 8 years ago. She never awakens from sleep short of breath. She never wakes at night with heartburn, belching or coughing.??She frequently snores, however never snores loudly enough that others complain. She rarely has trouble sleeping when she has a cold. She never wakes up gasping for breath during the night. She never has breathing problems at night. She never sweats excessively at night. She rarely notices her heart pounding or beating irregularly during the night. She never falls asleep during the day. She never falls asleep involuntarily, never falls asleep while driving. She never experiences loss of muscle tone with strong emotion. She never feels paralyzed on waking or falling asleep. She rarely experiences vivid dreams upon waking or falling asleep. She never feels afraid of going to sleep. She never has nightmares. She rarely recalls her dreams. She rarely has thoughts racing through her mind. She rarely feels sad or depressed. She rarely feels anxiety. She never notices parts of her body jerk. She never kicks during the night. She never feels crawling or aching feelings in her legs. She rarely feels leg pain at night. She very rarely has morning jaw pain, and never grinds her teeth at night. She occasionally feels bothered by pain during the day, is rarely awakened by pain during the night. She rarely wakes up feeling stiff in the morning, never wakes feeling sore or achy in the morning. She rarely awakens with pain in her neck, spine, or joints. She has fatigue. Normal bedtime is 10:00 p.m., falling asleep within 20 minutes, waking once at night. She wakes at 7:00 a.m., reports getting between 7 and 8 hours of sleep per night. She does not generally take naps in the day. A short nap lasting 10-15 minutes is not refreshing. She feels adequately rested on waking. Habits:??Tobacco: former smoker; uses vape pen Caffeine: 1 serving per day Alcohol: none Recreational substances: none [facility] Past Medical History Medical History (Updated 10/31/25 @ 11:33 by Eneida Mcpherson MD) Obstructive sleep apnea Psoriasis Colon polyp Hyperlipidemia Diabetes Afib Hypertension Surgical History Surgical History History of 2 total History of hip replacement History of cholecystectomy History of carotid endarterectomy Family History Family History Mother Family history of cancer Diabetes mellitus Heart disease Hypertension Afib Sibling Family history of cancer Heart disease Hypertension Grandparent Hypertension Hyperlipidemia Diabetes mellitus Afib Family history of cancer Dementia Heart attack Other Family history of bladder cancer Social History Social History Social History: patient denies alcohol use, uses a vape pen, denies drug use Smoking packs per day: 0.75 Smoking cigarettes per day: 15.0 Years smoked: 45 Smoking pack-years: 33.75 Smoking status: Former smoker Tobacco type: cigarettes and e-cigarettes/vaping Smoking end date: 12/01/14 Alcohol intake: current Drinks per week: 4 Substance use: never Substance use type: does not use Lack of Transportation: No Lack of Food: Never True Current Housing: I Have Housing Concerned About Future Housing: No Difficulty Paying Gas/Electric Bills: No Difficulty Paying for Meds: No Currently Unemployed: No Education: High School Diploma/GED Difficulty w/ Childcare or Family Care: No Living arrangements: with family Medications Home Medications ?Medication ?Instructions ?Recorded ?Confirmed ?Type aspirin 81 mg tablet 81 mg PO DAILY 08/07/23 09/29/25 History ascorbic acid (vitamin C) 500 mg mg PO 05/19/25 09/29/25 History capsule cholecalciferol (vitamin D3) 25 25 mcg PO DAILY 05/19/25 09/29/25 History mcg (1,000 unit) capsule multivitamin 1 tablet PO DAILY 05/19/25 09/29/25 History amlodipine 10 mg tablet 10 mg PO DAILY #90 tabs 07/20/25 09/29/25 Rx apixaban 5 mg tablet (Eliquis) 5 mg PO BID #180 tabs 07/20/25 09/29/25 Rx carvedilol 6.25 mg tablet 6.25 mg PO BID #180 tabs 07/20/25 09/29/25 Rx hydralazine 10 mg tablet 10 mg PO BID #180 tabs 07/20/25 09/29/25 Rx lisinopril 40 mg tablet 40 mg PO DAILY #90 tabs 07/20/25 09/29/25 Rx metformin 750 mg tablet,extended 750 mg PO DAILY #90 tabs 07/20/25 09/29/25 Rx release 24 hr rosuvastatin 40 mg tablet 40 mg PO HS #90 tabs 07/20/25 09/29/25 Rx spironolactone 25 mg tablet 25 mg PO DAILY #90 tabs 07/20/25 09/29/25 Rx varenicline tartrate 1 mg tablet 1 mg PO BID #180 tabs 07/20/25 09/29/25 Rx fluticasone propionate 50 1 spray intranasal BID #48 grams 09/06/25 09/29/25 Rx mcg/actuation nasal spray,suspension (Flonase Allergy Relief) Sleep Procedure A split night polysomnogram using the [email or web address] multi-channel system recorded the standard physiologic parameters including EEG, EOG, submentalis EMG, anterior tibialis EMG, EKG, body position, nasal and oral airflow using nasal pressure sensor and thermistor. Respiratory parameters of chest and abdominal movements were recorded with Respiratory Inductance Plethysmography belts. Oxygen saturation was recorded by pulse oximetry. Video monitoring was also performed. Sleep stages, periodic limb movements, and EEG arousals were scored in 30 second epochs according to the criteria of the AASM Scoring Manual. The Apnea-Hypopnea Index was calculated using CMS guidelines for definition of hypopnea while scoring respiratory events. No sleep aid was taken. She uses 1 pillow. No bathroom breaks. She used a fan for comfort. After the baseline portion the patient met criteria for a titration with an AHI of 5.2 and desaturation to 88%. She has a history of hypertension, and with this comorbidity she proceeded to CPAP titration with mild obstructive sleep apnea. She used a medium Kraus and Paykel Solo nasal mask with heated humidity, initial pressure of 5 cm, was not able to sleep so this was increased to 7 cm, 8 cm, 9 cm, 10 cm, 11 cm with 2 cm EPR to improve patient comfort, final pressure was CPAP 12 with 2 EPR. She did not spend much time at CPAP 12 with 2 of EPR, only 6 minutes however the residual apnea-hypopnea index was 0. At CPAP 12 with 2 cm EPR, the patient spent 6 minutes in bed, 2 minute awake, 4 minutes in non-REM, sleep efficiency 66.7%, residual AHI 0, lowest saturation 91%. CPAP 10 was also a good pressure. The patient spent 18.5 minutes at this pressure, all of it in REM, residual AHI 3.2 and minimum saturation 88%. REM was in the supine position. I am recommending the higher pressure, CPAP 12 with 2 cm EPR to improve sleep consolidation. Sleep Architecture During the diagnostic portion of the study, the total recording time was 294.9 minutes. The total sleep time was 196.5 minutes. Sleep latency was 49.8 minutes. There was no REM. Sleep Efficiency was 66.6%. The patient had 22 awakenings for an awakening index of 6.7. Wake after sleep onset time was 48.5 minutes. The patient spent 25.0 minutes, 12.7% of total sleep time in Stage N1. The patient spent 101.0 minutes, 51.4% in Stage N2. The patient spent 70.5 minutes, 35.9% in Stage N3. The patient spent no time in Stage REM sleep. At 02:05:04 AM the patient was placed on PAP treatment. During the treatment portion of the study, the total recording time was 240.4 minutes. The total sleep time was 118.0 minutes. Sleep latency was 11.5 minutes. REM latency was 147.5 minutes. Sleep Efficiency was 49.1%. Wake after Sleep Onset time was 110.5 minutes. The patient spent 21.0 minutes, 17.8% of total sleep time in Stage N1. The patient spent 57.0 minutes, 48.3% in Stage N2. The patient spent no time in Stage N3. The patient spent 40.0 minutes, 33.9% in Stage REM. Respiratory Analysis During the diagnostic portion of the study, the patient had 17 hypopneas, no obstructive apneas, no mixed apneas, and no central apneas for an overall Apnea Hypopnea Index of 5.2 events per hour. There was no REM. The NREM Apnea Hypopnea Index was 5.2. The patient had a Central Apnea Hypopnea Index of 0. There were no Respiratory Effort Related Arousals. The Respiratory Disturbance Index is 10.1 events per hour. There was no evidence of Moise-Nesbitt Respirations. During the treatment portion of the study, the patient had 6 hypopneas, 1 obstructive apnea, no mixed or central apneas for an overall Apnea Hypopnea Index of 3.6 events per hour. The REM Apnea Hypopnea Index was 6.0. The NREM Apnea Hypopnea Index was 2.3. The patient had a Central Apnea Hypopnea Index of 0. There were no Respiratory Effort Related Arousals. The Respiratory Disturbance Index is 8.6 events per hour. There was no evidence of Moise-Nesbitt Respirations. Arousals During the diagnostic portion of the study, there were a total of 123 arousals for an arousal index of 37.6. There were 17 respiratory arousals for an index of 5.2. There were no periodic limb movement arousals. There were 7 isolated limb movement arousals for an index of 2.1. There were 55 spontaneous arousals for an index of 16.8. During the treatment portion of the study, there were a total of 72 arousals for an index of 36.6. There were 5 respiratory arousals for an index of 2.5. There were 19 periodic limb movement arousals for an index of 9.7. There were 2 isolated limb movement arousals for an index of 1.0. There were 46 spontaneous arousals for an index of 23.4. Periodic Limb Movements During the diagnostic portion of the study, the patient had 10 isolated limb movements with an index of 3.1. The patient had no periodic limb movements. The patient had a total of 10 limb movements with a total limb movement index of 3.1. During the treatment portion of the study, the patient had 6 isolated limb movements with an index of 3.1. The patient had 73 periodic limb movements with an index of 37.1. The patient had a total of 79 limb movements with a total limb movement index of 40.2. Oximetry Data During the diagnostic portion of the study, the patient had an average oxygen saturation of 92% in wake with a minimum oxygen saturation of 88% and a maximum oxygen saturation of 97%. The patient had an average oxygen saturation of 90.2% in sleep with a minimum oxygen saturation of 88% and a maximum oxygen saturation of 96%. The patient had 39 oxygen desaturations resulting in an Oxygen Desaturation Index of 11.9. The patient spent 5.3 minutes, 1.8% of total sleep time with an oxygen saturation less than 88%. During the treatment portion of the study, the patient had an average oxygen saturation of 91.9% in wake with a minimum oxygen saturation of 89% and a maximum oxygen saturation of 97%. The patient had an average oxygen saturation of 91.3% in sleep with a minimum oxygen saturation of 86% and a maximum oxygen saturation of 96%. The patient had 23 oxygen desaturations resulting in an Oxygen Desaturation Index of 11.7. The patient spent 4.7 minutes, 11.7% of total sleep time with an oxygen saturation less than 88%. Snoring Profile Snoring was moderate to loud and continuous, eliminated during the titration. Cardiac Profile During the diagnostic portion of the study, the EKG showed normal sinus rhythm, average pulse rate was 59.1 bpm, minimum pulse rate was 55 bpm, and the maximum pulse rate was 72 bpm. Few scattered PVCs. No arrhythmias noted. During the treatment portion of the study, the EKG showed normal sinus rhythm, average pulse rate was 57.9 bpm,m minimum pulse rate was 53 bpm, maximum pulse rate was 68 bpm. No arrhythmias noted. EEG Profile Unremarkable, no evidence of seizures. Assessment and Plan Assessment and Plan (1) Obstructive sleep apnea: Code(s): G47.33 - Obstructive sleep apnea (adult) (pediatric) Status: Acute Assessment and Plan: This split night sleep study on October 08, 2025 shows mild obstructive sleep apnea, apnea-hypopnea index 5.2 with desaturation 88% and no REM on the baseline with moderate to loud snoring, successfully treated with a medium Kraus and Paykel Solo nasal mask and CPAP 12 with 2 cm EPR. At CPAP 12 iwth 2 cm EPR, the patient spent 6 minutes in bed, 2 minute awake, 4 minutes in non-REM, sleep efficiency 66.7%, residual AHI 0, lowest saturation 91%. The patient should be prescribed this ResMed equipment as well as tubing, filters and reservoir. This should be used with all episodes of sleep. Compliance should be reviewed within 31-90 days of starting therapy for usage greater than 4 hours per night greater than 70% of the nights. The patient should be asked about symptoms such as excessive daytime sleepiness, quality of sleep, decreased nocturia, increased mental functioning such as memory, mood, and concentration. BMI is 39. Weight management is advised. Clinical data suggests that weight loss of 10% can reduce the severity of respiratory events and snoring and improve AHI by as much as 25%. Data The data obtained during this sleep study is adequate for interpretation. Certification This sleep study has been reviewed by a board certified sleep medicine physician.
[2025-10-31 11:01] VITALS: BMI 39.7
== END 2025-10-09 06:29 | disposition home or self-care (01) ==
PROVIDERS: PCP Emergency Medicine; Visit Provider Emergency Medicine
DX: G47.33 Obstructive sleep apnea (adult) (pediatric) (principal); Z68.39 Body mass index [BMI] 39.0-39.9, adult
CPT/HCPCS: 95811